=== PATIENT | male | born 1935 | race Caucasian/White ===

== ENCOUNTER → 2016-06-11 | Outpatient (CLI) | payer MEDICARE, BC ==
--- NOTE | 2016-06-11 11:30 | CT ---
EXAMINATION TYPE: CT chest wo con DATE OF EXAM: 06/11/2016 11:21 AM COMPARISON: 04/16/2016 HISTORY: follow up to lung CA CT DLP: 247.2 mGycm, Automated exposure control for dose reduction was used. CONTRAST: None TECHNIQUE: Axial images were obtained at 5 mm thick sections. Reconstructed images are reviewed on [employer] computer in the coronal plane. FINDINGS: Portion of the thyroid visualized is normal. Supraclavicular region appears normal. Axillar y regions are normal. There is a superior mediastinal mass measuring 6.9 x 5.5 cm at the level of the aortic arch extending into the aortopulmonic window. This has enlarged from the comparison study. There is a 1.3 cm pretra cheal lymph node which is enlarged. Some smaller shotty lymphadenopathy is at the aortopulmonic windo w and in the pretracheal space. A small subcarinal lymph node may be present. Note is made of coronar y artery calcification. There may be a 0.4 cm nodule in the left lower lobe periphery, stable from prior. Mild increased lung markings are in the dependent portions of the lung bases and within the periphery. The ascending aorta diameter at the level of the main pulmonary artery is 3.5 cm. The main pulmona ry artery diameter at the bifurcation is 2.[address] sections are obtained through the upper abdomen. Abdomen is essentially unremarkable. IMPRESSIONS: 1. Enlarging superior mediastinal mass. 2. Enlarged mediastinal lymph node in the pretracheal space larger than previous.
== END | disposition home or self-care (01) ==
LOC: RADCTMAIN 10:56
PROVIDERS: ATTEND Internal Medicine Hematology & Oncology
DX: C34.90 Malignant neoplasm of unspecified part of unspecified bronchus or lung (principal); J98.59 Other diseases of mediastinum, not elsewhere classified; R60.0 Localized edema
CPT/HCPCS: 71250

== ENCOUNTER 2016-08-05 14:26 | Inpatient (IN) | payer MEDICARE, BC ==
[2016-08-05] MEDS ORDERED: IV VANCOMYCIN PER PHARMACY 1 EACH MISC MISCELLANE PRN (17:27)
[2016-08-05] MEDS ORDERED: IPRATROPIUM-ALBUTEROL 3 ML NEB INHALATION PRN (17:53)
[2016-08-05] MEDS ORDERED: AMPICILLIN-SULBACTAM 3 GM in SODIUM CHLORIDE 0.9% 100 ML IVPB SCH (18:00)
[2016-08-05] MEDS: methylPREDNISolone SOD SUCCI 125 MG/2 ML VIAL IV SCH (18:32)
[2016-08-05 18:39] LABS: Calcium 8.3 mg/dL (8.4-10.2); Magnesium 1.7 mg/dL (1.6-2.3); Potassium 4.3 mmol/L (3.5-5.1); Total Bilirubin 0.8 mg/dL (0.2-1.3); Total Protein 5.2 g/dL (6.3-8.2)
--- NOTE | 2016-08-05 18:47 | XR ---
EXAMINATION TYPE: XR chest 2V DATE OF EXAM: 08/05/2016 6:34 PM COMPARISON: Prior chest x-ray March 07, [address] chest June 11, 2016. HISTORY: Shortness of breath. TECHNIQUE: Frontal and lateral views of the chest are obtained. FINDINGS: There is is chronic emphysematous change with left suprahilar mass or neoplasm redemonstra ayse. There is small left pleural effusion felt now present. The cardiac silhouette size is mildly en larged. The osseous structures are demineralized. Deformity right posterior lateral fifth rib is re demonstrated. IMPRESSION: Chronic emphysematous change with suprahilar mass or neoplasm and new small right pleura l effusion.
[2016-08-05] MEDS ORDERED: ONDANSETRON 4 MG/2 ML VIAL IVP PRN (18:52)
[2016-08-05 18:55] LABS: Anisocytosis Slight; Aty Lym Flag Slight; CH 31.1; CHCM 32.4; HCT 34.3 % (39.0-53.0); HDW 2.45; MCHC 32.1 g/dL (31.0-37.0); MCV 96.4 fL (80.0-100.0); Macrocytosis Slight; Mean Platelet Volume 8.2; RBC 3.56 m/uL (4.30-5.90); RDW 16.5 % (11.5-15.5); WBC 4.5 k/uL (3.8-10.6); WBC (Perox) 4.61
[2016-08-05] MEDS: BUDESONIDE 0.5 MG/2 ML NEBU INHALATION SCH (19:00)
[2016-08-05] MEDS ORDERED: VANCOMYCIN 1,500 MG in SODIUM CHLORIDE 0.9% 250 ML IVPB ONE (19:00)
[2016-08-05] MEDS ORDERED: RX INFO: IV CONTRAST WAS GIVEN 1 EACH MISC MISCELLANE PRN (19:01)
[2016-08-05] MEDS: IPRATROPIUM-ALBUTEROL 3 ML NEB INHALATION SCH (19:02)
[2016-08-05] MEDS: SODIUM CHLORIDE 0.9% 1,000 ML IV SCH (19:06)
[2016-08-05 19:32] LABS: Add Differential Manual Differential
[2016-08-05 19:42] LABS: Nucleated Red Blood Cells 0 /100 WBC (0-0); Total Cells Counted 100
[2016-08-05 19:44] LABS: Manual Review Performed
[2016-08-05 20:24] LABS: Glucose,Whole Blood 287 mg/dL (75-99)
[2016-08-05] MEDS: INSULIN LISPRO (humaLOG) 300 UNIT/3 ML VIAL SQ SCH (21:09)
[2016-08-05] MEDS: SODIUM BICARBONATE TAB 650 MG TAB PO SCH (22:33)
[2016-08-05 22:58] LABS: Hemoglobin A1C 6.9 % (4.2-6.1)
[2016-08-06 00:13] LABS: Glucose,Whole Blood 100 mg/dL (75-99)
[2016-08-06] MEDS: methylPREDNISolone SOD SUCCI 125 MG/2 ML VIAL IV SCH ×3 (02:36→17:15)
--- NOTE | 2016-08-06 07:06 | NM ---
EXAMINATION TYPE: NM pul vent and perfuse DATE OF EXAM: 08/05/2016 11:26 PM COMPARISON: Chest x-ray from earlier today HISTORY: Shortness of breath rule out pulmonary embolism TECHNIQUE: Utilizing inhalation of 71.5 mCi Tc 99m DTPA aerosol and intravenous injection of 5.5 mCi of Tc 99m MAA, ventilation and perfusion images are acquired post injection in multiple projections. FINDINGS: Some matching defects in bilateral upper lungs is present. Some central clumping of particles on vent ilation images is product of underlying COPD. No mismatched defects are clearly identified. IMPRESSION: Low probability for pulmonary embolism
[2016-08-06 07:12] LABS: Glucose,Whole Blood 116 mg/dL (75-99)
[2016-08-06 08:00] LABS: Calcium 8.7 mg/dL (8.4-10.2); Potassium 4.6 mmol/L (3.5-5.1)
[2016-08-06] MEDS: BUDESONIDE 0.5 MG/2 ML NEBU INHALATION SCH ×2 (08:13→21:30)
[2016-08-06] MEDS: IPRATROPIUM-ALBUTEROL 3 ML NEB INHALATION SCH ×4 (08:13→21:30)
[2016-08-06] MEDS: INSULIN LISPRO (humaLOG) 300 UNIT/3 ML VIAL SQ SCH ×4 (08:16→21:09)
[2016-08-06] MEDS: AMPICILLIN-SULBACTAM 3 GM in SODIUM CHLORIDE 0.9% 100 ML IVPB SCH ×2 (08:20→21:07)
[2016-08-06] MEDS: METOPROLOL SUCCINATE (ER) 50 MG TAB.ER.24H PO SCH (08:21)
[2016-08-06] MEDS: SODIUM BICARBONATE TAB 650 MG TAB PO SCH ×2 (08:21→21:11)
[2016-08-06] MEDS: FUROSEMIDE 20 MG TAB PO SCH (08:21)
[2016-08-06] MEDS: SODIUM CHLORIDE 0.9% 1,000 ML IV SCH ×2 (08:23→21:11)
[2016-08-06] MEDS: DOCUSATE 100 MG CAP PO SCH (11:15)
[2016-08-06 11:36] LABS: Glucose,Whole Blood 259 mg/dL (75-99)
[2016-08-06 12:05] VITALS: BMI 28.1
--- NOTE | 2016-08-06 15:55 | P.PN ---
Subjective This is a 80-year-old male who was a direct admission from Dr. Camejo's office on August 05 were patient reportedly was being seen for shortness of breath.chest x-ray on admission show chronic emphysema changes with the suprahilar mass or neoplasticpatient did have a VQ scan done on the it showed low probability for pulmonary embolipatient does have a history of lung cancerlung cancer was diagnosed in 2013 no radiation. Did receive chemotherapy on 08/01/2016. Patient has chronic respiratory failure O2 dependent 3 L around- the-clock at home Objective - Vital Signs Vital signs: Vital Signs Temp 97.5 F L 08/06/16 15:00 Pulse 82 08/06/16 15:00 Resp 16 08/06/16 15:00 BP 173/92 08/06/16 15:00 Pulse Ox 100 08/06/16 15:00 Intake & Output 08/05/16 08/06/16 08/06/16 18:59 06:59 18:59 Intake Total 450 Output Total 450 200 Balance -450 250 Weight 84 kg 84 kg 84 kg Intake: Intake, IV Titration 450 Amount Sodium Chloride 0.9% 1, 450 000 ml @ 75 mls/hr IV . [id number] RAJIV Rx#:[id number] Output: Urine 450 200 Other: # Voids 2 - Exam physical exam 80-year-old sitting up on the edge of the bed does not appear in acute distress states breathing feels slightly improved Lungs posterior diminished at the bases no audible wheezing on 3 L no cough noted Heart S1-S2 audible regular Abdomen soft nontender no reports of nausea vomiting Extremities no edema noted - Labs CBC & Chem 7: 08/05/16 18:18 08/06/16 07:19 Labs: Abnormal Lab Results - Last 24 Hours (Table) 08/05/16 08/05/16 08/05/16 Range/Units 18:18 18:18 18:18 RBC 3.56 L (4.30-5.90) m/uL Hgb 11.0 L (13.0-17.5) gm/dL Hct 34.3 L (39.0-53.0) % RDW 16.5 H (11.5-15.5) % Lymphocytes # (Manual) 0.9 L (1.0-4.8) k/uL D-Dimer (<0.60) mg/L FEU BUN 44 H (9-20) mg/dL Creatinine 2.30 H (0.66-1.25) mg/dL Glucose 267 H (74-99) mg/dL POC Glucose (mg/dL) (75-99) mg/dL Hemoglobin A1c 6.9 H (4.2-6.1) % Calcium 8.3 L (8.4-10.2) mg/dL Total Protein 5.2 L (6.3-8.2) g/dL Albumin 3.0 L (3.5-5.0) g/dL 08/05/16 08/05/16 08/06/16 Range/Units 18:18 20:22 00:09 RBC (4.30-5.90) m/uL Hgb (13.0-17.5) gm/dL Hct (39.0-53.0) % RDW (11.5-15.5) % Lymphocytes # (Manual) (1.0-4.8) k/uL D-Dimer 2.85 H (<0.60) mg/L FEU BUN (9-20) mg/dL Creatinine (0.66-1.25) mg/dL Glucose (74-99) mg/dL POC Glucose (mg/dL) 287 H 100 H (75-99) mg/dL Hemoglobin A1c (4.2-6.1) % Calcium (8.4-10.2) mg/dL Total Protein (6.3-8.2) g/dL Albumin (3.5-5.0) g/dL 08/06/16 08/06/16 08/06/16 Range/Units 07:00 07:19 11:25 RBC (4.30-5.90) m/uL Hgb (13.0-17.5) gm/dL Hct (39.0-53.0) % RDW (11.5-15.5) % Lymphocytes # (Manual) (1.0-4.8) k/uL D-Dimer (<0.60) mg/L FEU BUN 36 H (9-20) mg/dL Creatinine 2.31 H (0.66-1.25) mg/dL Glucose 122 H (74-99) mg/dL POC Glucose (mg/dL) 116 H 259 H (75-99) mg/dL Hemoglobin A1c (4.2-6.1) % Calcium (8.4-10.2) mg/dL Total Protein (6.3-8.2) g/dL Albumin (3.5-5.0) g/dL Assessment and Plan Plan: impression Present on admission shortness of breath suspect due to acute bronchitis Lung cancer diagnosed in 2013 no radiation treatment recent chemotherapy 2016 Chronic bronchitis VQ scan low probability of a pulmonary emboli Chest x-ray shows emphysema changes Chronic hypoxic respiratory failure supplement O2 3 L [id number] Chronic constipation Plan Continue current IV antibiotics as ordered Aerosol bronchodilators as ordered DVT and GI prophylaxis Home meds as appropriate Repeat labs in the morning Further recommendations pending The above dictated assessment and findings were discussed with dr camejo . Impression and the plan of care have been dictated as directed. Esther Brenner nurse practitioner acting as a scribe for dr camejo
[2016-08-06 17:17] LABS: Glucose,Whole Blood 399 mg/dL (75-99)
--- NOTE | 2016-08-06 18:37 | P.CONS ---
History of Present Illness - Reason for Consult Consult date: 08/06/16 Requesting physician: Fer Cordero - Chief Complaint SOB - History of Present Illness Mr. Hatch is a very pleasant male pt of Dr. Hsieh who presented with hoarseness of voice mid 2014 associated with progressive dyspnea and 35 pound weight loss. He was seen by ENT at 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 He started palliative carboplatin and etoposide in August 2014. Treatment monitoring CT scan on 11/08/2014 revealed significant improvement in his disease compared to prior CT he had at [facility]. He complete 4 cycles 11/2014, he required only 1 PRBC transfusion after the 3rd cycle. Treatment follow up CT on 02/03/15 continued to reveal significant improvement in his disease. CT f/u 05/11/15 revealed no evidence of progression.Pt did well but unfortunately CT f/u on 11/30/15 revealed significant increase in DONNA lung mass.He started weekly taxol on 12/20/15.Treatment evaluation CT 02/14/2016 revealed stable disease. He competed 4 cycles 02/21/16. He was hospitalized with pneumonia in February. The next 2 scans on 04/16/16 and 06/11/16 both revealed slight increase in DONNA lung mass. Dr. Hsieh discussed poor prognosis especially with pt co-morbidities but pt and his wanted to pursue active treatment, pt is currently s/p 2 cycles of single agent salvage carboplatin. Pt states that when he went outside the cold made it difficult for him to breathe, he could not catch his breath and that is what brought him to the hospital, he is breathing much more comfortably now, he states he vomited after eating dinner last night, he denied any nausea. No fevers, chills, oral irritation, chest pain, palpitations, he has a cough, small amt of sputum, denies hemoptysis, no abd pain, cramping, bloating, difficulty urinating, he takes colace at home for constipation. No other physical c/o. Review of Systems All systems: negative Constitutional: Reports as per HPI Past Medical History Past Medical History: Coronary Artery Disease (CAD), Cancer, COPD, Diabetes Mellitus, Hyperlipidemia, Hypertension, Osteoarthritis (OA), Pneumonia, Renal Disease Additional Past Medical History / Comment(s): Lung Cancer diagnosed in 2013.NO RADIATION BUT had A chemo on 08-01-16.chronic resp failure,bronchits, emphysema- is 02 dependnant 3 liters n/c atc. constipation(last bm, 08-04-16)," paralized lt vocal cord", sinus problems. History of Any Multi-Drug Resistant Organisms: None Reported Past Surgical History: Adenoidectomy, Hernia Repair, Orthopedic Surgery, Tonsillectomy Additional Past Surgical History / Comment(s): bilateral knee replacement, pin in right ankle, "rectal fissure sx long time ago", "bronchoscopy/bx", laina cataracts, micro laryngoscopy 2013. Past Anesthesia/Blood Transfusion Reactions: No Reported Reaction Additional Past Anesthesia/Blood Transfusion Reaction / Comm: clausterphobia. had 1 blood transfusion- no reaction. Past Psychological History: No Psychological Hx Reported Additional Psychological History / Comment(s): pt is independant, lives with his catracho in i level home has 1 step into house, basement has 13 steps. has 2 dogs, 4 cats. pt received visiting nurse x1 week(could'nt rememeber name of company), has home 02, nebulizer and a cane/walker if needed. 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 Smoking Status: Former smoker Past Alcohol Use History: None Reported Additional Past Alcohol Use History / Comment(s): started smoking 89, quit 1999, smoked 3 ppd. Past Drug Use History: None Reported - Past Family History Father Family Medical History: COPD Additional Family Medical History / Comment(s): emphysemas(smoker) Brother(s) Family Medical History: Cancer Additional Family Medical History / Comment(s): prostate cancer Sister(s) Family Medical History: COPD Mother Family Medical History: Dementia Additional Family Medical History / Comment(s): alzhiemers lived to be 102 Medications and Allergies Home Medications Medication Instructions Recorded Confirmed Type Sodium Bicarbonate Tab 650 mg PO BID 02/24/16 08/05/16 History Albuterol Inhaler [Ventolin Hfa 2 puff INHALATION RT-QID PRN 02/25/16 08/05/16 History Inhaler] Fluticasone/Salmeterol [Advair Hfa 1 puff INHALATION RT-BID 08/05/16 08/05/16 History 115-21 Mcg Inhaler] Furosemide [Lasix] 20 mg PO DAILY 08/05/16 08/05/16 History Insulin Aspart [NovoLOG] See Protocol SQ AC-TID 08/05/16 08/05/16 History Metoprolol Succinate (ER) [Toprol 50 mg PO DAILY 08/05/16 08/05/16 History Xl] Allergies Allergy/AdvReac Type Severity Reaction Status Date / Time No Known Allergies Allergy Verified 08/05/16 19:45 Physical Exam Vitals: Vital Signs Temp Pulse Pulse Resp BP Pulse Ox 08/06/16 16:00 16 08/06/16 15:00 97.5 F L 82 16 173/92 100 08/06/16 11:55 100 08/06/16 11:44 92 08/06/16 08:29 100 08/06/16 08:14 110 H 100 08/06/16 08:00 18 08/06/16 07:00 98.3 F 108 H 16 170/90 96 08/06/16 00:00 101 H 16 08/05/16 20:36 97.8 F 101 H 16 152/77 96 08/05/16 19:13 68 08/05/16 19:02 60 Intake and Output 08/06/16 08/06/16 08/06/16 06:59 14:59 22:59 Intake Total 450 Output Total 200 200 Balance -200 250 Intake: Intake, IV Titration 450 Amount Sodium Chloride 0.9% 1, 450 000 ml @ 75 mls/hr IV . [id number] RAJIV Rx#:[id number] Output: Urine 200 200 Other: # Voids 2 Weight 84 kg 84 kg Patient Weight 08/07/16 06:59 Weight 84 kg - Constitutional General appearance: average body habitus, cooperative, no acute distress - EENT Eyes: anicteric sclerae, EOMI ENT: normal oropharynx - Neck Neck: no lymphadenopathy - Respiratory Respiratory: left: rales (anterior), bilateral: diminished - Cardiovascular Heart sounds: normal: S1, S2 leg Peripheral Edema: bilateral: 1+, Pitting - Gastrointestinal General gastrointestinal: no absent bowel sounds, no decreased bowel sounds, no distended, no hepatomegaly, no hyperactive bowel sounds, normal bowel sounds, no organomegaly, no rigid, no scaphoid, soft, no splenomegaly, no tenderness, no umbilical hernia, no ventral hernia - Neurologic Neurologic: CNII-XII intact - Musculoskeletal Musculoskeletal: generalized weakness, strength equal bilaterally - Psychiatric Psychiatric: A&O x's 3, appropriate affect, intact judgment & insight Results CBC & Chem 7: 08/05/16 18:18 08/06/16 07:19 Labs: Abnormal Lab Results - Last 24 Hours (Table) 08/05/16 08/05/16 08/05/16 Range/Units 18:18 18:18 18:18 RBC 3.56 L (4.30-5.90) m/uL Hgb 11.0 L (13.0-17.5) gm/dL Hct 34.3 L (39.0-53.0) % RDW 16.5 H (11.5-15.5) % Lymphocytes # (Manual) 0.9 L (1.0-4.8) k/uL D-Dimer (<0.60) mg/L FEU BUN 44 H (9-20) mg/dL Creatinine 2.30 H (0.66-1.25) mg/dL Glucose 267 H (74-99) mg/dL POC Glucose (mg/dL) (75-99) mg/dL Hemoglobin A1c 6.9 H (4.2-6.1) % Calcium 8.3 L (8.4-10.2) mg/dL Total Protein 5.2 L (6.3-8.2) g/dL Albumin 3.0 L (3.5-5.0) g/dL 08/05/16 08/05/16 08/06/16 Range/Units 18:18 20:22 00:09 RBC (4.30-5.90) m/uL Hgb (13.0-17.5) gm/dL Hct (39.0-53.0) % RDW (11.5-15.5) % Lymphocytes # (Manual) (1.0-4.8) k/uL D-Dimer 2.85 H (<0.60) mg/L FEU BUN (9-20) mg/dL Creatinine (0.66-1.25) mg/dL Glucose (74-99) mg/dL POC Glucose (mg/dL) 287 H 100 H (75-99) mg/dL Hemoglobin A1c (4.2-6.1) % Calcium (8.4-10.2) mg/dL Total Protein (6.3-8.2) g/dL Albumin (3.5-5.0) g/dL 08/06/16 08/06/16 08/06/16 Range/Units 07:00 07:19 11:25 RBC (4.30-5.90) m/uL Hgb (13.0-17.5) gm/dL Hct (39.0-53.0) % RDW (11.5-15.5) % Lymphocytes # (Manual) (1.0-4.8) k/uL D-Dimer (<0.60) mg/L FEU BUN 36 H (9-20) mg/dL Creatinine 2.31 H (0.66-1.25) mg/dL Glucose 122 H (74-99) mg/dL POC Glucose (mg/dL) 116 H 259 H (75-99) mg/dL Hemoglobin A1c (4.2-6.1) % Calcium (8.4-10.2) mg/dL Total Protein (6.3-8.2) g/dL Albumin (3.5-5.0) g/dL 08/06/16 Range/Units 17:11 RBC (4.30-5.90) m/uL Hgb (13.0-17.5) gm/dL Hct (39.0-53.0) % RDW (11.5-15.5) % Lymphocytes # (Manual) (1.0-4.8) k/uL D-Dimer (<0.60) mg/L FEU BUN (9-20) mg/dL Creatinine (0.66-1.25) mg/dL Glucose (74-99) mg/dL POC Glucose (mg/dL) 399 H (75-99) mg/dL Hemoglobin A1c (4.2-6.1) % Calcium (8.4-10.2) mg/dL Total Protein (6.3-8.2) g/dL Albumin (3.5-5.0) g/dL Comments: VQ report reviewed Chest x-ray: report reviewed Assessment and Plan (1) Small cell lung cancer Narrative/Plan: Pt is on salvage therapy, pt and his are aware of prognosis and chose active treatment. Pt current c/o are likely a combination of lung cancer as well as COPD exacerbation, he is doing better already with a few doses of abx and supportive respiratory treatments. Pt will complete treatment of COPD exacerbation then be evaluated by Dr. Hsieh prior to resuming chemotherapy. Status: Chronic Plan: Labs were reviewed, mild anemia-no intervention IM and Pulmonary following pt
[2016-08-06 20:47] LABS: Glucose,Whole Blood 227 mg/dL (75-99)
[2016-08-06] MEDS: FAMOTIDINE 20 MG TAB PO SCH (21:11)
[2016-08-06] MEDS ORDERED: METOPROLOL SUCCINATE (ER) 50 MG TAB.ER.24H PO STA (21:26)
[2016-08-07] MEDS: methylPREDNISolone SOD SUCCI 125 MG/2 ML VIAL IV SCH ×4 (00:37→23:08)
[2016-08-07 07:09] LABS: Glucose,Whole Blood 262 mg/dL (75-99)
[2016-08-07 07:51] LABS: Anisocytosis Slight; Basophils % (A) 0 %; CH 31.4; CHCM 32.8; Eosinophils % (A) 0 %; HDW 2.53; HGB 11.6 gm/dL (13.0-17.5); Luc # (Auto) 0.08; Luc % (Auto) 1; Lymphocytes # (A) 0.7 k/uL (1.0-4.8); Lymphocytes % (A) 10 %; MCHC 32.3 g/dL (31.0-37.0); MCV 96.1 fL (80.0-100.0); Macrocytosis Slight; Mean Platelet Volume 7.8; Monocytes # (A) 0.3 k/uL (0-1.0); Monocytes % (A) 4 %; Neutrophils # (A) 6.2 k/uL (1.3-7.7); Neutrophils % (A) 85 %; RBC 3.75 m/uL (4.30-5.90); RDW 16.4 % (11.5-15.5); WBC 7.3 k/uL (3.8-10.6); WBC (Perox) 7.94
[2016-08-07] MEDS: INSULIN LISPRO (humaLOG) 300 UNIT/3 ML VIAL SQ SCH ×4 (07:54→21:05)
[2016-08-07] MEDS: SODIUM BICARBONATE TAB 650 MG TAB PO SCH ×2 (07:56→21:05)
[2016-08-07] MEDS: FAMOTIDINE 20 MG TAB PO SCH (07:56)
[2016-08-07] MEDS: FUROSEMIDE 20 MG TAB PO SCH (07:56)
[2016-08-07] MEDS: DOCUSATE 100 MG CAP PO SCH (07:56)
[2016-08-07] MEDS: METOPROLOL SUCCINATE (ER) 50 MG TAB.ER.24H PO SCH (07:57)
[2016-08-07] MEDS: AMPICILLIN-SULBACTAM 3 GM in SODIUM CHLORIDE 0.9% 100 ML IVPB SCH ×2 (07:59→21:05)
[2016-08-07 08:06] LABS: Calcium 8.6 mg/dL (8.4-10.2); Potassium 5.4 mmol/L (3.5-5.1); Total Bilirubin 0.6 mg/dL (0.2-1.3); Total Protein 5.9 g/dL (6.3-8.2)
--- NOTE | 2016-08-07 08:29 | P.PN ---
Subjective Pleasant 80-year-old being seen on rounds this morning currently sitting up in a chair taking a diet. Voice remains hoarse. Patient has received treatment for left lung mass is currently on cycle 2 last chemo treatment July Patient continues to reported goes outside the cold makes it difficult for him to breathe he can't catch his breath. His voice remains hoarse. Patient has been worked up with the ENT clinic at [place] who was found to have vocal cord paralysis. CAT scan of the neck at that time was negative. scan of the chest on the July showed a large left Hilar and mediastinal mass with a right paratracheal adenopathy and splenic lesions PET scan done on 08/17/2014 showed suspicious uptake in the after mentioned areas. Patient did have a bronchitic with biopsies the path report was positive for small cell lung cancer extensively stage disease. As mentioned the patient' s been followed by Dr. menjivar oncology. Has been receiving palliative carboplatin and etoposide patient's been followed closely by hematology oncology service. this morning is asking about having a MediPort placed will discuss with oncology service Objective - Vital Signs Vital signs: Vital Signs Temp 97.4 F L 08/07/16 07:00 Pulse 84 08/07/16 07:00 Resp 16 08/07/16 07:00 BP 178/86 08/07/16 07:00 Pulse Ox 99 08/07/16 07:00 Intake & Output 08/06/16 08/07/16 08/07/16 18:59 06:59 18:59 Intake Total 450 1615 Output Total 200 200 Balance 250 1415 Weight 84 kg Intake: IV 1275 Sodium Chloride 0.9% 1, 1275 000 ml @ 75 mls/hr IV . [id number] RAJIV Rx#:[id number] Intake, IV Titration 450 100 Amount Ampicillin-Sulbactam 3 gm 100 In Sodium Chloride 0.9% 100 ml @ 100 mls/hr IVPB Q12HR RAJIV Rx#:[id number] Sodium Chloride 0.9% 1, 450 000 ml @ 75 mls/hr IV . [id number] RAJIV Rx#:[id number] Oral 240 Output: Urine 200 200 Other: # Voids 2 1 - Exam Physical exam 80-year-old gentleman sitting up in a taking a diet place remains hoarse pleasant cooperative oriented 3 is asking about having a MediPort placed for chemotherapy treatment Lungs diminished left lower lobe greater than the right poor air entry upper airways positive breath sounds Heart S1-S2 audible regular denying chest pain Abdomen soft nontender no reports of nausea vomiting Extremities no edema noted - Labs CBC & Chem 7: 08/07/16 07:27 08/06/16 07:19 Labs: Abnormal Lab Results - Last 24 Hours (Table) 08/06/16 08/06/16 08/06/16 Range/Units 11:25 17:11 20:27 RBC (4.30-5.90) m/uL Hgb (13.0-17.5) gm/dL Hct (39.0-53.0) % RDW (11.5-15.5) % Lymphocytes # (1.0-4.8) k/uL POC Glucose (mg/dL) 259 H 399 H 227 H (75-99) mg/dL 08/07/16 08/07/16 Range/Units 06:55 07:27 RBC 3.75 L (4.30-5.90) m/uL Hgb 11.6 L (13.0-17.5) gm/dL Hct 36.0 L (39.0-53.0) % RDW 16.4 H (11.5-15.5) % Lymphocytes # 0.7 L (1.0-4.8) k/uL POC Glucose (mg/dL) 262 H (75-99) mg/dL Assessment and Plan Plan: impression Present on admission shortness of breath suspect due to acute bronchitis with acute exacerbation of COPD Lung cancer diagnosed in 2013 no radiation treatment recent palliative chemotherapy 08/01/2016 Chronic bronchitis VQ scan low probability of a pulmonary emboli Chest x-ray shows emphysema changes Chronic hypoxic respiratory failure supplement O2 3 L [id number] Chronic constipation Chronic dyspnea suspect due to small cell lung cancer progressive Plan Continue current IV antibiotics as ordered Unasyn and vancomycin Aerosol bronchodilators as ordered DVT and GI prophylaxis Home meds as appropriate Repeat labs in the morning Further recommendations pending Reviewed the recommendations by hematology oncology. The recommending treating the COPD exacerbation then patient can be evaluated by Dr. Arriaga before resuming chemotherapy. Patient's complaints are likely a combination of lung cancer as well as the exacerbation of COPD The above dictated assessment and findings were discussed with dr camejo . Impression and the plan of care have been dictated as directed. Esther Brenner nurse practitioner acting as a scribe for dr camejo
[2016-08-07] MEDS: IPRATROPIUM-ALBUTEROL 3 ML NEB INHALATION SCH ×4 (09:01→20:32)
[2016-08-07] MEDS: BUDESONIDE 0.5 MG/2 ML NEBU INHALATION SCH ×2 (09:01→20:32)
[2016-08-07] MEDS: VANCOMYCIN 1,500 MG in SODIUM CHLORIDE 0.9% 250 ML IVPB SCH (10:08)
--- NOTE | 2016-08-07 10:43 | P.CNPUL ---
History of Present Illness Consult date: 08/06/16 Requesting physician: Fer Cordero Reason for consult: COPD Chief complaint: Shortness of breath History of present illness: This is a 80-year-old man who is being evaluated and examined today on the fifth floor. This patient was a direct admit from Dr. Sanchez's office on August 05. He was apparently having increasing shortness of breath. This patient has chronic respiratory failure and he is O2 dependent with 3 L at all times. His chest x-ray on admission showed some chronic emphysematous changes and with a suprahilar mass or neoplasm and a new small right pleural effusion. Patient did have a VQ scan done on the as well and showed low probability for a pulmonary emboli. Patient does have a history of lung cancer was diagnosed in 2013 has not received radiation. He has undergone chemotherapy and his last treatment was on 08/01/2016. The patient is also being seen by oncology. Upon examination the patient is lying in bed with no specific complaints at this time. He is on 3 L of oxygen states he does have an intermittent dry cough. Review of Systems 14 point review of systems completed and is negative other than what is noted in the HPI Past Medical History Past Medical History: Coronary Artery Disease (CAD), Cancer, COPD, Diabetes Mellitus, Hyperlipidemia, Hypertension, Osteoarthritis (OA), Pneumonia, Renal Disease Additional Past Medical History / Comment(s): Lung Cancer diagnosed in 2013.NO RADIATION BUT had A chemo on 08-01-16.chronic resp failure,bronchits, emphysema- is 02 dependnant 3 liters n/c atc. constipation(last bm, 08-04-16)," paralized lt vocal cord", sinus problems. History of Any Multi-Drug Resistant Organisms: None Reported Past Surgical History: Adenoidectomy, Hernia Repair, Orthopedic Surgery, Tonsillectomy Additional Past Surgical History / Comment(s): bilateral knee replacement, pin in right ankle, "rectal fissure sx long time ago", "bronchoscopy/bx", laina cataracts, micro laryngoscopy 2013. Past Anesthesia/Blood Transfusion Reactions: No Reported Reaction Additional Past Anesthesia/Blood Transfusion Reaction / Comment(s): clausterphobia. had 1 blood transfusion- no reaction. Past Psychological History: No Psychological Hx Reported Additional Psychological History / Comment(s): pt is independant, lives with his catracho in [place] level home has 1 step into house, basement has 13 steps. has 2 dogs, 4 cats. pt received visiting nurse x1 week(could'nt rememeber name of company), has home 02, nebulizer and a cane/walker if needed. 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 Smoking Status: Former smoker Past Alcohol Use History: None Reported Additional Past Alcohol Use History / Comment(s): started smoking 1849, quit 1999, smoked 3 ppd. Past Drug Use History: None Reported - Past Family History Father Family Medical History: COPD Additional Family Medical History / Comment(s): emphysemas(smoker) Brother(s) Family Medical History: Cancer Additional Family Medical History / Comment(s): prostate cancer Sister(s) Family Medical History: COPD Mother Family Medical History: Dementia Additional Family Medical History / Comment(s): alzhiemers lived to be 102 Medications and Allergies Home Medications Medication Instructions Recorded Confirmed Type Sodium Bicarbonate Tab 650 mg PO BID 02/24/16 08/05/16 History Albuterol Inhaler [Ventolin Hfa 2 puff INHALATION RT-QID PRN 02/25/16 08/05/16 History Inhaler] Fluticasone/Salmeterol [Advair Hfa 1 puff INHALATION RT-BID 08/05/16 08/05/16 History 115-21 Mcg Inhaler] Furosemide [Lasix] 20 mg PO DAILY 08/05/16 08/05/16 History Insulin Aspart [NovoLOG] See Protocol SQ AC-TID 08/05/16 08/05/16 History Metoprolol Succinate (ER) [Toprol 50 mg PO DAILY 08/05/16 08/05/16 History Xl] Allergies Allergy/AdvReac Type Severity Reaction Status Date / Time No Known Allergies Allergy Verified 08/05/16 19:45 Physical Exam Vitals: Vital Signs Temp Pulse Pulse Resp BP BP Pulse Ox 08/06/16 11:55 100 08/06/16 11:44 92 08/06/16 08:29 100 08/06/16 08:14 110 H 100 08/06/16 08:00 18 08/06/16 07:00 98.3 F 108 H 16 170/90 96 08/06/16 00:00 101 H 16 08/05/16 20:36 97.8 F 101 H 16 152/77 96 08/05/16 19:13 68 08/05/16 19:02 60 08/05/16 16:08 97.7 F 109 H 17 199/84 92 L 08/05/16 16:00 80 20 Intake and Output 08/05/16 08/06/16 08/06/16 22:59 06:59 14:59 Output Total 250 200 200 Balance -250 -200 -200 Output: Urine 250 200 200 Other: # Voids 2 Weight 84 kg 84 kg 84 kg Patient Weight 08/07/16 06:59 Weight 84 kg GENERAL EXAM: Alert, active, comfortable in no apparent distress. HEAD: Normocephalic. EYES: Normal reaction of pupils, equal size. NOSE: Clear with pink turbinates. THROAT: No erythema or exudates. NECK: No masses, no JVD. CHEST: No chest wall deformity. LUNGS: Lung sounds noted to be coarse throughout, rhonchi noted bilaterally as well as diminished bases. CVS: S1 and S2 normal with no audible mumurs, regular rhythm. ABDOMEN: No hepatosplenomegaly, normal bowel sounds, no guarding or rigidity. EXTREMITIES: No edema noted, pedal pulses palpable. SKIN: No rashes CENTRAL NERVOUS SYSTEM: No focal deficits, tone is normal in all 4 extremities. Results - Laboratory Findings CBC and BMP: 08/07/16 07:27 08/06/16 07:19 PT/INR, D-dimer D-Dimer 2.85 mg/L FEU (<0.60) H 08/05/16 18:18 Abnormal lab findings: Abnormal Labs 08/05/16 08/05/16 08/05/16 18:18 18:18 18:18 RBC 3.56 L Hgb 11.0 L Hct 34.3 L RDW 16.5 H Lymphocytes # (Manual) 0.9 L D-Dimer BUN 44 H Creatinine 2.30 H Glucose 267 H POC Glucose (mg/dL) Hemoglobin A1c 6.9 H Calcium 8.3 L Total Protein 5.2 L Albumin 3.0 L 08/05/16 08/05/16 08/06/16 18:18 20:22 00:09 RBC Hgb Hct RDW Lymphocytes # (Manual) D-Dimer 2.85 H BUN Creatinine Glucose POC Glucose (mg/dL) 287 H 100 H Hemoglobin A1c Calcium Total Protein Albumin 08/06/16 08/06/16 08/06/16 07:00 07:19 11:25 RBC Hgb Hct RDW Lymphocytes # (Manual) D-Dimer BUN 36 H Creatinine 2.31 H Glucose 122 H POC Glucose (mg/dL) 116 H 259 H Hemoglobin A1c Calcium Total Protein Albumin - Diagnostic Findings Chest x-ray: report reviewed, image reviewed Assessment and Plan Plan: Assessment Acute exacerbation of COPD Acute on chronic bronchitis Lung cancer diagnosed in 2013 Chronic hypoxic respiratory failure Chronic constipation 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 Continue with supplemental oxygen as well as updrafts. Appreciate recommendations from oncology. We will continue to monitor labs and adjust treatment as necessary.
--- NOTE | 2016-08-07 10:50 | P.PN ---
Subjective This is a 80-year-old male who is being evaluated and examined today on the fifth floor. The patient was a direct admit from Dr. Cordero's office on August 05. He was apparently having increasing shortness of breath. The patient has chronic respiratory failure and he is O2 dependent with 3 L at all times. His chest x-ray on admission showed some chronic emphysematous changes with a suprahilar mass or neoplasm and a new small right pleural effusion. Patient did have a VQ scan done on the as well and showed low probability for pulmonary emboli. Patient does have a history of lung cancer and was diagnosed in 2013 has not received radiation. He has undergone chemotherapy and his last treatment was on 08/01/2016. The patient is also being seen by oncology. Upon examination the patient is sitting up in bed with no specific complaints at this time he still continues to be on 3 L of oxygen. He states he feels his breathing is somewhat better today continues to have a intermittent dry cough. The patient is supposed to go for a port insertion tomorrow. Objective - Vital Signs Vital signs: Vital Signs Temp 97.4 F L 08/07/16 07:00 Pulse 96 08/07/16 09:17 Resp 16 08/07/16 07:00 BP 178/86 08/07/16 07:00 Pulse Ox 99 08/07/16 07:00 Intake & Output 08/06/16 08/07/16 08/07/16 18:59 06:59 18:59 Intake Total 450 1615 Output Total 200 200 Balance 250 1415 Weight 84 kg Intake: IV 1275 Sodium Chloride 0.9% 1, 1275 000 ml @ 75 mls/hr IV . [id number] RAJIV Rx#:[id number] Intake, IV Titration 450 100 Amount Ampicillin-Sulbactam 3 gm 100 In Sodium Chloride 0.9% 100 ml @ 100 mls/hr IVPB Q12HR RAJIV Rx#:[id number] Sodium Chloride 0.9% 1, 450 000 ml @ 75 mls/hr IV . [id number] RAJIV Rx#:[id number] Oral 240 Output: Urine 200 200 Other: # Voids 2 1 - Exam GENERAL EXAM: Alert, active, comfortable in no apparent distress. HEAD: Normocephalic. EYES: Normal reaction of pupils, equal size. NOSE: Clear with pink turbinates. THROAT: No erythema or exudates. NECK: No masses, no JVD. CHEST: No chest wall deformity. LUNGS: Lung sounds course. Patient noted to have some expiratory wheezes throughout. Bases diminished CVS: S1 and S2 normal with no audible mumurs, regular rhythm. ABDOMEN: No hepatosplenomegaly, normal bowel sounds, no guarding or rigidity. EXTREMITIES: No edema noted, pedal pulses palpable. SKIN: No rashes CENTRAL NERVOUS SYSTEM: No focal deficits, tone is normal in all 4 extremities. - Labs CBC & Chem 7: 08/07/16 07:27 08/06/16 07:19 Labs: Abnormal Lab Results - Last 24 Hours (Table) 08/06/16 08/06/16 08/06/16 Range/Units 11:25 17:11 20:27 RBC (4.30-5.90) m/uL Hgb (13.0-17.5) gm/dL Hct (39.0-53.0) % RDW (11.5-15.5) % Lymphocytes # (1.0-4.8) k/uL POC Glucose (mg/dL) 259 H 399 H 227 H (75-99) mg/dL 08/07/16 08/07/16 Range/Units 06:55 07:27 RBC 3.75 L (4.30-5.90) m/uL Hgb 11.6 L (13.0-17.5) gm/dL Hct 36.0 L (39.0-53.0) % RDW 16.4 H (11.5-15.5) % Lymphocytes # 0.7 L (1.0-4.8) k/uL POC Glucose (mg/dL) 262 H (75-99) mg/dL Assessment and Plan Plan: Assessment Acute exacerbation of COPD Acute on chronic bronchitis Lung cancer diagnosed in 2013 Chronic hypoxic respiratory failure Chronic constipation 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 We will continue with the current medications as they have been reviewed. Continue with supplemental oxygen as well as updrafts. Appreciate recommendations from oncology. We will continue to monitor labs and adjust treatment as necessary.
[2016-08-07 11:38] LABS: Glucose,Whole Blood 199 mg/dL (75-99)
--- NOTE | 2016-08-07 12:03 | P.GSCN ---
History of Present Illness Consult date: 08/07/16 Reason for Consult: Port placement Requesting physician: Giselle Meza History of present illness: Patient is a 80-year-old white male, patient of Dr. Cordero and Dr. Campa in the outpatient setting, with medical history significant for small cell lung cancer diagnosed in 2013 status post palliative chemotherapy with last treatment on 01/2017. Patient admitted with increased shortness of breath possibly secondary to acute bronchitis with an acute COPD. Surgical consult requested for Port-A-Cath placement. Upon examination, patient is sitting up in the chair. Patient reports nonproductive cough. Denies chills, fevers, nausea, vomiting, chest pain, or abdominal pain. Patient reports problems with constipation. Patient reports bilateral leg swelling improved with elevation Denies urinary problems. Afebrile. No evidence of leukocytosis. Hemoglobin 11.6. Past Medical History Past Medical History: Coronary Artery Disease (CAD), Cancer, COPD, Diabetes Mellitus, Hyperlipidemia, Hypertension, Osteoarthritis (OA), Pneumonia, Renal Disease Additional Past Medical History / Comment(s): Lung Cancer diagnosed in 2013.NO RADIATION BUT had A chemo on 08-01-16.chronic resp failure,bronchits, emphysema- is 02 dependnant 3 liters n/c atc. constipation(last bm, 08-04-16)," paralized lt vocal cord", sinus problems. History of Any Multi-Drug Resistant Organisms: None Reported Past Surgical History: Adenoidectomy, Hernia Repair, Orthopedic Surgery, Tonsillectomy Additional Past Surgical History / Comment(s): bilateral knee replacement, pin in right ankle, "rectal fissure sx long time ago", "bronchoscopy/bx", laina cataracts, micro laryngoscopy 2013. Past Anesthesia/Blood Transfusion Reactions: No Reported Reaction Additional Past Anesthesia/Blood Transfusion Reaction / Comm: clausterphobia. had 1 blood transfusion- no reaction. Past Psychological History: No Psychological Hx Reported Additional Psychological History / Comment(s): pt is independant, lives with his catracho in [place] home has 1 step into house, basement has 13 steps. has 2 dogs, 4 cats. pt received visiting nurse x1 week(could'nt rememeber name of company), has home 02, nebulizer and a cane/walker if needed. 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 Smoking Status: Former smoker Past Alcohol Use History: None Reported Additional Past Alcohol Use History / Comment(s): started smoking 1849, quit 1999, smoked 3 ppd. Past Drug Use History: None Reported - Past Family History Father Family Medical History: COPD Additional Family Medical History / Comment(s): emphysemas(smoker) Brother(s) Family Medical History: Cancer Additional Family Medical History / Comment(s): prostate cancer Sister(s) Family Medical History: COPD Mother Family Medical History: Dementia Additional Family Medical History / Comment(s): jjrs lived to be [facility] Medications and Allergies Home Medications Medication Instructions Recorded Confirmed Type Sodium Bicarbonate Tab 650 mg PO BID 02/24/16 08/05/16 History Albuterol Inhaler [Ventolin Hfa 2 puff INHALATION RT-QID PRN 02/25/16 08/05/16 History Inhaler] Fluticasone/Salmeterol [Advair Hfa 1 puff INHALATION RT-BID 08/05/16 08/05/16 History 115-21 Mcg Inhaler] Furosemide [Lasix] 20 mg PO DAILY 08/05/16 08/05/16 History Insulin Aspart [NovoLOG] See Protocol SQ AC-TID 08/05/16 08/05/16 History Metoprolol Succinate (ER) [Toprol 50 mg PO DAILY 08/05/16 08/05/16 History Xl] Allergies Allergy/AdvReac Type Severity Reaction Status Date / Time No Known Allergies Allergy Verified 08/05/16 19:45 Surgical - Exam Vital Signs Pulse Resp 80 20 08/05/16 16:00 08/05/16 16:00 GENERAL: Pt awake and alert, sitting up in a chair, and in no acute distress. LUNGS: Breath sounds diminished with faint expiratory wheezes throughout. HEART: Heart S1, S2, no S3 or S4. Regular rate and rhythm. No murmurs, rubs or gallops. ABDOMEN: Soft, nontender, nondistended, normoactive bowel sounds. No guarding, no rebound. No masses or organomegaly appreciated. EXTREMITIES: 2+ peripheral pulses. 1+ pitting edema. No calf tenderness. NEUROLOGICAL: Pt oriented x 3. Results - Labs 08/07/16 07:27 08/07/16 07:27 Abnormal Lab Results - Last 24 Hours (Table) 03/08/06/16 08/07/16 Range/Units 17:11 20:27 06:55 RBC (4.30-5.90) m/uL Hgb (13.0-17.5) gm/dL Hct (39.0-53.0) % RDW (11.5-15.5) % Lymphocytes # (1.0-4.8) k/uL Potassium (3.5-5.1) mmol/L BUN (9-20) mg/dL Creatinine (0.66-1.25) mg/dL Glucose (74-99) mg/dL POC Glucose (mg/dL) 399 H 227 H 262 H (75-99) mg/dL Total Protein (6.3-8.2) g/dL Albumin (3.5-5.0) g/dL 08/07/16 08/07/16 08/07/16 Range/Units 07:27 07:27 11:35 RBC 3.75 L (4.30-5.90) m/uL Hgb 11.6 L (13.0-17.5) gm/dL Hct 36.0 L (39.0-53.0) % RDW 16.4 H (11.5-15.5) % Lymphocytes # 0.7 L (1.0-4.8) k/uL Potassium 5.4 H (3.5-5.1) mmol/L BUN 44 H (9-20) mg/dL Creatinine 2.24 H (0.66-1.25) mg/dL Glucose 270 H (74-99) mg/dL POC Glucose (mg/dL) 199 H (75-99) mg/dL Total Protein 5.9 L (6.3-8.2) g/dL Albumin 3.4 L (3.5-5.0) g/dL Diabetes panel 08/07/16 Range/Units 07:27 Sodium 137 (137-145) mmol/L Potassium 5.4 H (3.5-5.1) mmol/L Chloride 101 (98-107) mmol/L Carbon Dioxide 26 (22-30) mmol/L BUN 44 H (9-20) mg/dL Creatinine 2.24 H (0.66-1.25) mg/dL Glucose 270 H (74-99) mg/dL Calcium 8.6 (8.4-10.2) mg/dL AST 29 (17-59) U/L ALT 33 (21-72) U/L Alkaline Phosphatase 98 (38-126) U/L Total Protein 5.9 L (6.3-8.2) g/dL Albumin 3.4 L (3.5-5.0) g/dL Calcium panel 08/07/16 Range/Units 07:27 Calcium 8.6 (8.4-10.2) mg/dL Albumin 3.4 L (3.5-5.0) g/dL Pituitary panel 08/07/16 Range/Units 07:27 Sodium 137 (137-145) mmol/L Potassium 5.4 H (3.5-5.1) mmol/L Chloride 101 (98-107) mmol/L Carbon Dioxide 26 (22-30) mmol/L BUN 44 H (9-20) mg/dL Creatinine 2.24 H (0.66-1.25) mg/dL Glucose 270 H (74-99) mg/dL Calcium 8.6 (8.4-10.2) mg/dL Adrenal panel 08/07/16 Range/Units 07:27 Sodium 137 (137-145) mmol/L Potassium 5.4 H (3.5-5.1) mmol/L Chloride 101 (98-107) mmol/L Carbon Dioxide 26 (22-30) mmol/L BUN 44 H (9-20) mg/dL Creatinine 2.24 H (0.66-1.25) mg/dL Glucose 270 H (74-99) mg/dL Calcium 8.6 (8.4-10.2) mg/dL Total Bilirubin 0.6 (0.2-1.3) mg/dL AST 29 (17-59) U/L ALT 33 (21-72) U/L Alkaline Phosphatase 98 (38-126) U/L Total Protein 5.9 L (6.3-8.2) g/dL Albumin 3.4 L (3.5-5.0) g/dL Assessment and Plan Plan: Impression: 1. Small cell lung cancer Plan: 1. Patient will have Port-A-Cath placed tomorrow. Patient will remain nothing by mouth after midnight. Will check CBC, BMP, PT/INR in a.m. Continue to follow the medical team. The above impression and plan have been discussed and directed by Dr. Martin. Alhaji ROGER acting as scribe for Dr. Martin.
[2016-08-07 17:03] LABS: Glucose,Whole Blood 396 mg/dL (75-99)
[2016-08-07] MEDS: SODIUM CHLORIDE 0.9% 1,000 ML IV SCH (17:56)
[2016-08-07 21:02] LABS: Glucose,Whole Blood 355 mg/dL (75-99)
[2016-08-08 07:33] LABS: Glucose,Whole Blood 321 mg/dL (75-99)
[2016-08-08] MEDS: AMPICILLIN-SULBACTAM 3 GM in SODIUM CHLORIDE 0.9% 100 ML IVPB SCH ×2 (07:56→20:44)
[2016-08-08] MEDS: methylPREDNISolone SOD SUCCI 125 MG/2 ML VIAL IV SCH ×2 (07:56→16:19)
[2016-08-08] MEDS: INSULIN LISPRO (humaLOG) 300 UNIT/3 ML VIAL SQ SCH ×4 (07:57→20:44)
[2016-08-08] MEDS: SODIUM BICARBONATE TAB 650 MG TAB PO SCH ×2 (07:57→20:44)
[2016-08-08] MEDS: FUROSEMIDE 20 MG TAB PO SCH (07:58)
[2016-08-08] MEDS: FAMOTIDINE 20 MG TAB PO SCH (07:58)
[2016-08-08] MEDS: DOCUSATE 100 MG CAP PO SCH (07:58)
[2016-08-08] MEDS: METOPROLOL SUCCINATE (ER) 50 MG TAB.ER.24H PO SCH (07:59)
[2016-08-08] MEDS: IPRATROPIUM-ALBUTEROL 3 ML NEB INHALATION SCH ×4 (08:01→20:18)
[2016-08-08] MEDS: BUDESONIDE 0.5 MG/2 ML NEBU INHALATION SCH ×2 (08:01→20:18)
[2016-08-08 09:16] LABS: Anisocytosis Slight; Basophils % (A) 0 %; CHCM 32.7; Eosinophils % (A) 0 %; HCT 33.9 % (39.0-53.0); HDW 2.46; Luc # (Auto) 0.15; Luc % (Auto) 2; Lymphocytes # (A) 0.9 k/uL (1.0-4.8); Lymphocytes % (A) 10 %; MCH 30.9 pg (25.0-35.0); MCHC 32.4 g/dL (31.0-37.0); MCV 95.3 fL (80.0-100.0); Macrocytosis Slight; Mean Platelet Volume 7.5; Monocytes # (A) 0.5 k/uL (0-1.0); Monocytes % (A) 5 %; Neutrophils # (A) 7.6 k/uL (1.3-7.7); Neutrophils % (A) 83 %; RBC 3.55 m/uL (4.30-5.90); RDW 16.9 % (11.5-15.5); WBC 9.1 k/uL (3.8-10.6); WBC (Perox) 9.58
[2016-08-08 09:20] LABS: INR 1.1 (<1.1); Prothrombin Time 11.2 sec (9.0-12.0)
[2016-08-08 09:33] LABS: Calcium 8.7 mg/dL (8.4-10.2); Potassium 5.2 mmol/L (3.5-5.1)
--- NOTE | 2016-08-08 11:20 | P.PN ---
Progress Note - Text The patient is scheduled for Port-A-Cath insertion. The risks and benefits of the procedure have been discussed patient.
[2016-08-08] MEDS ORDERED: IV FLUID CONTINUATION 1,000 ML IV ONE (11:22)
[2016-08-08] MEDS ORDERED: HEPARIN SODIUM,PORCINE 5,000 UNIT/ML 1 ML VIAL SQ ONE (11:48)
[2016-08-08] MEDS ORDERED: ONDANSETRON 4 MG/2 ML VIAL IVP ONE (11:49)
[2016-08-08] MEDS ORDERED: INSULIN LISPRO (humaLOG) 300 UNIT/3 ML VIAL SQ ONE (11:56)
[2016-08-08] MEDS ORDERED: fentaNYL (PF) 50 MCG/ML 2 ML AMP ONE (12:00)
[2016-08-08] MEDS ORDERED: PROPOFOL 10 MG/ML 20 ML VIAL IV ONE (12:00)
[2016-08-08] MEDS ORDERED: MIDAZOLAM 2 MG/2 ML VIAL ONE (12:00)
[2016-08-08] MEDS ORDERED: KETAMINE 10 MG/ML 20 ML VIAL ONE (12:00)
[2016-08-08 12:02] LABS: Glucose,Whole Blood 283 mg/dL (75-99)
--- NOTE | 2016-08-08 12:10 | PN ---
Juan Hatch who is a 80-year-old male, seen, evaluated, and examined on Oncology unit. Clinically, patient is doing slightly better, breathing comfortably. Denies any chest pain, cough, congestion and shortness of breath has improved, though. Hemodynamic status is stable. This patient has been admitted to the hospital with increasing shortness of breath. He remains on oxygen. Chest x-ray showed extensive emphysema as well as a lung mass. Work-up including V/Q scan has been low probability for PE. Patient is a known cancer. Has been on therapy and received radiation in the past as well as chemotherapy with the last cycle was given earlier this month. Patient is being followed by Oncology unit as well. His last set of vitals include blood pressure is 176/80, respirations 20, pulse 74, temperature 98, saturation 100% on 2 L oxygen. HEENT: Unremarkable. NECK: Supple. LUNGS: Good air entry bilaterally. HEART: Regular rate and rhythm. Abdomen is soft. NEUROLOGICAL EXAMINATION: Otherwise, awake and alert. Patient is being evaluated by General Surgery for port placement as well. IMPRESSION: 1. Small cell lung cancer. Patient is undergoing chemotherapy. 2. Acute chronic obstructive pulmonary disease exacerbation. 3. Acute on chronic hypoxic respiratory failure. 4. Generalized weakness and medical debility and protein calorie malnourishment secondary to multifactorial process. PLAN AND RECOMMENDATION: As above. Continue supportive care. Increase activity as tolerated Radha with proceeding with port placement, aggressive chemotherapy for small cell cancer. Will follow.
[2016-08-08] MEDS ORDERED: BUPIVACAIN-EPI 0.25%-1:200,000 30 ML VIAL SQ ONE ×2 (12:19)
[2016-08-08] MEDS ORDERED: IOHEXOL 350 MG/ML 50ML BOTTLE INJ ONE ×2 (12:21)
--- NOTE | 2016-08-08 12:44 | P.OP ---
Date of Procedure: 08/08/16 Preoperative Diagnosis: Lung cancer Postoperative Diagnosis: Lung cancer Procedure(s) Performed: Left subclavian Port-A-Cath insertion Anesthesia: MAC Surgeon: Jose Martin Estimated Blood Loss (ml): 5 Pathology: none sent Condition: stable Disposition: PACU Description of Procedure: MPROCEDURE: The patient was placed on the operating table in the supine position. She received MAC anesthetic. The left chest was prepped and draped in the usual sterile fashion. The skin underneath the right clavicle was anesthetized with 1% Xylocaine and using Seldinger technique, the right subclavian vein was cannulized. The wire was placed through the needle and positioned under fluoroscopy. Next, the needle was removed and the port site was anesthetized with 1% Xylocaine. Skin was incised with #15 blade and port pocket was made using blunt and sharp dissection. Following this the catheter was attached to the sport and the port was flushed. The port was positioned into the pocket site and was secured with 3-0 Vicryl suture. The catheter was then brought out through the wire site and then the dilator sheath was placed over the wire and the dilator and the wire were removed. The catheter was placed through the sheath and the sheath was removed. The port was flushed with hep-lock solution. Skin was closed with interrupted 3-0 Vicryl sutures. Steri-Strips were applied. The patient tolerated the procedure well. The patient was sent to recovery room for chest x-ray after the procedure.
--- NOTE | 2016-08-08 12:56 | FL ---
EXAMINATION TYPE: FL guided central line placemt DATE OF EXAM: 08/08/2016 12:44 PM CLINICAL HISTORY: Port-A-Cath insertion TECHNIQUE: Fluoroscopy. COMPARISON: None. FINDINGS: Fluoroscopic guidance was provided during Port-A-Cath insertion procedure performed by Dr. Martin. A total of 37 seconds of fluoroscopic time was utilized during the procedure and one spot intraoperative fluoroscopic image is acquired. Single image acquired shows catheter tip at level of SVC. IMPRESSION: As Above.
[2016-08-08 13:04] LABS: Glucose,Whole Blood 279 mg/dL (75-99)
--- NOTE | 2016-08-08 13:32 | XR ---
EXAMINATION TYPE: XR chest 1V portable DATE OF EXAM: 08/08/2016 1:23 PM CLINICAL HISTORY: Port-A-Cath insertion TECHNIQUE: Single AP portable frontal view of the chest is obtained. COMPARISON: Chest x-ray from 3 days earlier. FINDINGS: There is new right subclavian Mediport catheter with tip in SVC. There is chronic emphysem atous change with left suprahilar mass/neoplasm. There is redemonstration of elevated left hemidiaphr agm. Dystrophic calcification or metallic foreign body right hilar region is stable. No sizable pneum othorax is seen bilaterally after catheter insertion. Suspect small left pleural effusion felt stable . Deformity right posterior lateral fifth rib is redemonstrated. IMPRESSION: New right subclavian Mediport catheter with tip in SVC. No evidence of sizable pneumothor ax after catheter insertion procedure.
--- NOTE | 2016-08-08 14:52 | P.PN ---
Subjective 80-year-old being seen in rounds this morning sitting up in a chair. Patient is aware the plan of care. Patient scheduled today for a Port-A-Cath insertion in a patient who is receiving chemotherapy for lung cancer the been no new events noted patient reports breathing feels slightly improved. Patients being followed by pulmonology service. Patient chest x-ray shows extensive emphysema as well as a lung mass. Workup such as a VQ scan showed low probability of a pulmonary emboli Objective - Vital Signs Vital signs: Vital Signs Temp 97.8 F 08/08/16 12:44 Pulse 75 08/08/16 13:15 Resp 16 08/08/16 13:15 BP 153/75 08/08/16 13:15 Pulse Ox 96 08/08/16 13:15 Intake & Output 08/07/16 08/08/16 08/08/16 18:59 06:59 18:59 Intake Total 825 1090 300 Output Total 10 Balance 825 1090 290 Intake: IV 600 750 300 Sodium Chloride 0.9% 1, 600 750 000 ml @ 75 mls/hr IV . [id number] RAJIV Rx#:[id number] Intake, IV Titration 225 100 Amount Ampicillin-Sulbactam 3 gm 100 100 In Sodium Chloride 0.9% 100 ml @ 100 mls/hr IVPB Q12HR RAJIV Rx#:[id number] Vancomycin 1,500 mg In 125 Sodium Chloride 0.9% 250 ml @ 125 mls/hr IVPB Q48H RAJIV Rx#:[id number] Oral 240 Output: Estimated Blood Loss 10 Other: # Voids 1 - Exam Physical exam 80-year-old gentleman sitting up remains hoarse pleasant cooperative oriented 3 is aware of the plan today is scheduled for Mediport by surgical service Lungs diminished left lower lobe greater than the right poor air entry upper airways positive breath sounds Heart S1-S2 audible regular denying chest pain Abdomen soft nontender no reports of nausea vomiting Extremities no edema noted - Labs CBC & Chem 7: 08/08/16 08:53 08/08/16 08:53 Labs: Abnormal Lab Results - Last 24 Hours (Table) 08/07/16 08/07/16 08/08/16 Range/Units 17:01 21:00 07:30 RBC (4.30-5.90) m/uL Hgb (13.0-17.5) gm/dL Hct (39.0-53.0) % RDW (11.5-15.5) % Lymphocytes # (1.0-4.8) k/uL Sodium (137-145) mmol/L Potassium (3.5-5.1) mmol/L BUN (9-20) mg/dL Creatinine (0.66-1.25) mg/dL Glucose (74-99) mg/dL POC Glucose (mg/dL) 396 H 355 H 321 H (75-99) mg/dL 08/08/16 08/08/16 08/08/16 Range/Units 08:53 08:53 11:42 RBC 3.55 L (4.30-5.90) m/uL Hgb 11.0 L (13.0-17.5) gm/dL Hct 33.9 L (39.0-53.0) % RDW 16.9 H (11.5-15.5) % Lymphocytes # 0.9 L (1.0-4.8) k/uL Sodium 136 L (137-145) mmol/L Potassium 5.2 H (3.5-5.1) mmol/L BUN 59 H (9-20) mg/dL Creatinine 2.34 H (0.66-1.25) mg/dL Glucose 327 H (74-99) mg/dL POC Glucose (mg/dL) 283 H (75-99) mg/dL 08/08/16 Range/Units 12:59 RBC (4.30-5.90) m/uL Hgb (13.0-17.5) gm/dL Hct (39.0-53.0) % RDW (11.5-15.5) % Lymphocytes # (1.0-4.8) k/uL Sodium (137-145) mmol/L Potassium (3.5-5.1) mmol/L BUN (9-20) mg/dL Creatinine (0.66-1.25) mg/dL Glucose (74-99) mg/dL POC Glucose (mg/dL) 279 H (75-99) mg/dL Assessment and Plan Plan: impression Present on admission shortness of breath suspect due to acute bronchitis with acute exacerbation of COPD Lung cancer diagnosed in 2013 no radiation treatment recent palliative chemotherapy 08/01/2016 Chronic bronchitis VQ scan low probability of a pulmonary emboli Chest x-ray shows emphysema changes Chronic hypoxic respiratory failure supplement O2 3 L [id number] Chronic constipation 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 recommend treating the COPD exacerbation then patient can be evaluated by Dr. Arriaga before resuming chemotherapy. Patient's complaints are likely a combination of lung cancer as well as the exacerbation of COPD The above dictated assessment and findings were discussed with dr camejo . Impression and the plan of care have been dictated as directed. Esther Brenner nurse practitioner acting as a scribe for dr camejo
[2016-08-08 16:52] LABS: Glucose,Whole Blood 379 mg/dL (75-99)
[2016-08-08] MEDS: SODIUM CHLORIDE 0.9% 1,000 ML IV SCH ×2 (17:50→20:43)
[2016-08-08 20:40] LABS: Glucose,Whole Blood 424 mg/dL (75-99)
[2016-08-09] MEDS: methylPREDNISolone SOD SUCCI 125 MG/2 ML VIAL IV SCH ×2 (00:05→07:47)
[2016-08-09] MEDS: SODIUM CHLORIDE 0.9% 1,000 ML IV SCH ×2 (00:05→17:28)
[2016-08-09] MEDS: DOCUSATE 100 MG CAP PO SCH (07:41)
[2016-08-09] MEDS: FUROSEMIDE 20 MG TAB PO SCH (07:42)
[2016-08-09] MEDS: FAMOTIDINE 20 MG TAB PO SCH (07:42)
[2016-08-09] MEDS: METOPROLOL SUCCINATE (ER) 50 MG TAB.ER.24H PO SCH (07:42)
[2016-08-09 07:43] LABS: Glucose,Whole Blood 305 mg/dL (75-99)
[2016-08-09] MEDS: INSULIN LISPRO (humaLOG) 300 UNIT/3 ML VIAL SQ SCH ×4 (07:45→20:41)
[2016-08-09] MEDS: SODIUM BICARBONATE TAB 650 MG TAB PO SCH ×2 (07:47→20:41)
[2016-08-09] MEDS: AMPICILLIN-SULBACTAM 3 GM in SODIUM CHLORIDE 0.9% 100 ML IVPB SCH ×2 (07:57→20:45)
[2016-08-09] MEDS: IPRATROPIUM-ALBUTEROL 3 ML NEB INHALATION SCH ×4 (08:05→19:13)
[2016-08-09] MEDS: BUDESONIDE 0.5 MG/2 ML NEBU INHALATION SCH ×2 (08:05→19:12)
[2016-08-09 08:13] LABS: Calcium 8.8 mg/dL (8.4-10.2)
[2016-08-09] MEDS: VANCOMYCIN 1,500 MG in SODIUM CHLORIDE 0.9% 250 ML IVPB SCH (09:33)
--- NOTE | 2016-08-09 10:09 | P.PN ---
Subjective This is a 80-year-old male who is being evaluated and examined today on the fifth floor. The patient was a direct admit from Dr. Cordero's office on August 05. He was apparently having increasing shortness of breath. The patient has chronic respiratory failure and he is O2 dependent with 3 L at all times. His chest x-ray on admission showed some chronic emphysematous changes with a suprahilar mass or neoplasm and a new small right pleural effusion. Patient did have a VQ scan done on the as well and showed low probability for pulmonary emboli. Patient does have a history of lung cancer and was diagnosed in 2013 has not received radiation. He has undergone chemotherapy and his last treatment was on 08/01/2016. The patient is also being seen by oncology. Upon examination the patient is sitting up in bed with no specific complaints at this time he still continues to be on 3 of oxygen. Patient uses oxygen at home as well. He states he feels his breathing is somewhat better today continues to have a intermittent dry cough. The patient underwent a port placement surgery yesterday. Objective - Vital Signs Vital signs: Vital Signs Temp 97.7 F 08/09/16 07:00 Pulse 109 H 08/09/16 08:51 Resp 20 08/09/16 07:00 BP 188/89 08/09/16 08:51 Pulse Ox 98 08/09/16 07:00 Intake & Output 08/08/16 08/09/16 08/09/16 18:59 06:59 18:59 Intake Total 1490 1890 Output Total 210 Balance 1280 1890 Intake: IV 900 Sodium Chloride 0.9% 1, 600 000 ml @ 75 mls/hr IV . [id number] RAJIV Rx#:[id number] Oral 590 1890 Output: Urine 200 Estimated Blood Loss 10 Other: # Voids 1 2 - Exam GENERAL EXAM: Alert, active, comfortable in no apparent distress. HEAD: Normocephalic. EYES: Normal reaction of pupils, equal size. NOSE: Clear with pink turbinates. THROAT: No erythema or exudates. NECK: No masses, no JVD. CHEST: No chest wall deformity. LUNGS: Lung sounds course. Patient noted to have some faint expiratory wheezes throughout. Bases diminished CVS: S1 and S2 normal with no audible mumurs, regular rhythm. ABDOMEN: No hepatosplenomegaly, normal bowel sounds, no guarding or rigidity. EXTREMITIES: No edema noted, pedal pulses palpable. SKIN: No rashes CENTRAL NERVOUS SYSTEM: No focal deficits, tone is normal in all 4 extremities. - Labs CBC & Chem 7: 08/08/16 08:53 08/09/16 07:13 Labs: Abnormal Lab Results - Last 24 Hours (Table) 08/08/16 08/08/16 08/08/16 Range/Units 11:42 12:59 16:49 Potassium (3.5-5.1) mmol/L BUN (9-20) mg/dL Creatinine (0.66-1.25) mg/dL Glucose (74-99) mg/dL POC Glucose (mg/dL) 283 H 279 H 379 H (75-99) mg/dL 08/08/16 08/09/16 08/09/16 Range/Units 20:38 07:13 07:30 Potassium 6.0 H (3.5-5.1) mmol/L BUN 60 H (9-20) mg/dL Creatinine 2.30 H (0.66-1.25) mg/dL Glucose 314 H (74-99) mg/dL POC Glucose (mg/dL) 424 H 305 H (75-99) mg/dL Assessment and Plan Plan: Assessment Acute exacerbation of COPD Acute on chronic bronchitis Lung cancer diagnosed in 2013 Chronic hypoxic respiratory failure Chronic constipation 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 Continue with supplemental oxygen as well as updrafts. Appreciate recommendations from oncology. We will continue to monitor labs and adjust treatment as necessary. This patient could be discharged home in the near future. I performed an examination of the patient and discussed their management with the nurse practitioner. I have reviewed the nurse practitioner's note and agree with the documented findings and plan of care.
[2016-08-09] MEDS ORDERED: SODIUM POLYSTYRENE SULFONATE 15 GM/60 ML BOTTLE PO STA (10:44)
--- NOTE | 2016-08-09 10:49 | P.PN ---
Subjective 80-year-old being seen on rounds. Patients being followed by multiple consulting physicians pulmonology, hematology oncology and surgical service. Patient is postop day 1 left subclavian Port-A-Cath insertion in a patient who is receiving chemotherapy for lung cancer. Did note the potassium was up to 6 this morning. Patient currently is resting comfortably in bed there's been no other new events the temp this morning is 97.7 the right subclavian site dressing is dry patient currently is resting in bed and states breathing feels slightly improved. Patient continues on IV Vanco and Unasyn await further recommendations in regards to the antibiotics Objective - Vital Signs Vital signs: Vital Signs Temp 97.7 F 08/09/16 07:00 Pulse 109 H 08/09/16 08:51 Resp 20 08/09/16 07:00 BP 188/89 08/09/16 08:51 Pulse Ox 98 08/09/16 07:00 Intake & Output 08/08/16 08/09/16 08/09/16 18:59 06:59 18:59 Intake Total 1490 1890 Output Total 210 Balance 1280 1890 Intake: IV 900 Sodium Chloride 0.9% 1, 600 000 ml @ 75 mls/hr IV . [id number] RAJIV Rx#:[id number] Oral 590 1890 Output: Urine 200 Estimated Blood Loss 10 Other: # Voids 1 2 - Exam Physical exam 80-year-old gentleman heart hearing resting in bed states breathing feels slightly improved Chest right subclavian purple ecchymotic bruise no hematoma Lungs diminished bilaterally poor air entry coarse rhonchi upper airways on O2 at 2-3 L dry nonproductive cough noted Heart S1-S2 audible regular Abdomen soft nontender Extremities no edema noted - Labs CBC & Chem 7: 08/08/16 08:53 08/09/16 07:13 Labs: Abnormal Lab Results - Last 24 Hours (Table) 08/08/16 08/08/16 08/08/16 Range/Units 11:42 12:59 16:49 Potassium (3.5-5.1) mmol/L BUN (9-20) mg/dL Creatinine (0.66-1.25) mg/dL Glucose (74-99) mg/dL POC Glucose (mg/dL) 283 H 279 H 379 H (75-99) mg/dL 0308/09/16 08/09/16 Range/Units 20:38 07:13 07:30 Potassium 6.0 H (3.5-5.1) mmol/L BUN 60 H (9-20) mg/dL Creatinine 2.30 H (0.66-1.25) mg/dL Glucose 314 H (74-99) mg/dL POC Glucose (mg/dL) 424 H 305 H (75-99) mg/dL Assessment and Plan Plan: impression Present on admission shortness of breath suspect due to acute bronchitis with acute exacerbation of COPD Lung cancer diagnosed in 2013 no radiation treatment recent palliative chemotherapy 08/01/2016 Chronic bronchitis VQ scan low probability of a pulmonary emboli Chest x-ray shows emphysema changes Chronic hypoxic respiratory failure supplement O2 3 L [id number] Chronic constipation 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 recommend treating the COPD exacerbation then patient can be evaluated by Dr. Arriaga before resuming chemotherapy. Patient's complaints are likely a combination of lung cancer as well as the exacerbation of COPD potassium to be corrected repeat labs today taper the steroids down further recommendations pending The above dictated assessment and findings were discussed with dr camejo . Impression and the plan of care have been dictated as directed. Esther Brenner nurse practitioner acting as a scribe for dr camejo
[2016-08-09 11:30] LABS: Glucose,Whole Blood 365 mg/dL (75-99)
[2016-08-09] MEDS: methylPREDNISolone SOD SUCCI 40 MG/ML 1 ML VIAL IV SCH ×2 (13:08→23:53)
[2016-08-09] MEDS ORDERED: INSULIN REGULAR 100 UNIT/ML VIAL IV ONE (13:41)
[2016-08-09] MEDS ORDERED: DEXTROSE 50%-WATER 50 ML SYRINGE IVP STA (13:51)
[2016-08-09] MEDS ORDERED: SODIUM BICARB 8.4% 50 ML SYR (1 MEQ/ML) IV STA (13:53)
[2016-08-09 17:16] LABS: Glucose,Whole Blood 169 mg/dL (75-99)
[2016-08-09 20:16] LABS: Glucose,Whole Blood 405 mg/dL (75-99)
[2016-08-09 20:16] LABS: Glucose,Whole Blood 374 mg/dL (75-99)
[2016-08-10] MEDS: SODIUM CHLORIDE 0.9% 1,000 ML IV SCH (06:09)
[2016-08-10 07:21] LABS: Glucose,Whole Blood 265 mg/dL (75-99)
[2016-08-10] MEDS: IPRATROPIUM-ALBUTEROL 3 ML NEB INHALATION SCH ×2 (08:00→11:15)
[2016-08-10] MEDS: BUDESONIDE 0.5 MG/2 ML NEBU INHALATION SCH (08:00)
[2016-08-10] MEDS: FUROSEMIDE 20 MG TAB PO SCH (08:01)
[2016-08-10] MEDS: SODIUM BICARBONATE TAB 650 MG TAB PO SCH (08:01)
[2016-08-10] MEDS: DOCUSATE 100 MG CAP PO SCH (08:01)
[2016-08-10] MEDS: INSULIN LISPRO (humaLOG) 300 UNIT/3 ML VIAL SQ SCH ×2 (08:01→12:18)
[2016-08-10] MEDS: FAMOTIDINE 20 MG TAB PO SCH (08:02)
[2016-08-10] MEDS: METOPROLOL SUCCINATE (ER) 50 MG TAB.ER.24H PO SCH (08:02)
[2016-08-10] MEDS: AMPICILLIN-SULBACTAM 3 GM in SODIUM CHLORIDE 0.9% 100 ML IVPB SCH (08:17)
[2016-08-10 08:45] VITALS: BP 133/78; RESP 20; TEMP 97.1
[2016-08-10 11:15] LABS: Glucose,Whole Blood 218 mg/dL (75-99)
[2016-08-10 11:28] VITALS: PULSE 94
[2016-08-10] MEDS: methylPREDNISolone SOD SUCCI 40 MG/ML 1 ML VIAL IV SCH (12:17)
--- NOTE | 2016-08-10 14:08 | DS ---
DATE OF ADMISSION: 08/09/2016 DATE OF DISCHARGE: DISCHARGE MEDICATIONS: 1. Albuterol and Atrovent, DuoNeb updrafts q.i.d. 2. Colace 100 mg daily. 3. Pepcid 20 daily. 4. Lasix 20 daily. 5. Insulin and Accu-Chek protocol. 6. Medrol Dosepak. 7. Augmentin 875 b.i.d. for a week. 8. Metoprolol succinate 50 mg daily. 9. Sodium bicarb 650 p.o. b.i.d. CONDITION: Stable. PROGNOSIS: Guarded. Ambulate as tolerated. Procedures done while in the hospital: He had a port placed on his right upper chest for which he will get chemotherapy as an outpatient. He has acute on chronic renal insufficiency. He has acute on chronic anemia. He had hyperkalemia and exacerbation of COPD and chronic bronchitis, lung cancer, chronic hypoxemic respiratory failure, chronic constipation. Continue on current medicines and will be sent home in stable condition to follow up as an outpatient. He was admitted and treated with IV antibiotics, IV steroids for his breathing and significant dyspnea. Port was changed while in the hospital. His diabetes controlled with Accu-Cheks protocol and his diabetes. Will follow up in the near future within a week in the office.
[2016-08-11] MEDS ORDERED: VANCOMYCIN TROUGH DUE 1 EACH MISC MISCELLANE ONE (08:00)
== END 2016-08-10 15:10 | disposition home or self-care (01) | DRG 191 ==
LOC: 5ONC 15:20 → INTOOBSV 15:20 → OBSVTOIN 08-09 14:19
PROVIDERS: ADMIT Family Medicine; ATTEND Family Medicine
PROC: 0JH63XZ Insertion of Tunneled Vascular Access Device into Chest Subcutaneous Tissue and Fascia, Percutaneous Approach (ICD-10-PCS; principal; 2016-08-08 12:30)
PROC: B5161ZA Fluoroscopy of Right Subclavian Vein using Low Osmolar Contrast, Guidance (ICD-10-PCS; principal; 2016-08-08 12:30)
PROC: 05H533Z Insertion of Infusion Device into Right Subclavian Vein, Percutaneous Approach (ICD-10-PCS; principal; 2016-08-08 12:30)
DX: J44.0 Chronic obstructive pulmonary disease with (acute) lower respiratory infection (principal); N17.9 Acute kidney failure, unspecified; E44.0 Moderate protein-calorie malnutrition; J96.11 Chronic respiratory failure with hypoxia; E11.22 Type 2 diabetes mellitus with diabetic chronic kidney disease; E87.5 Hyperkalemia; J38.00 Paralysis of vocal cords and larynx, unspecified; C34.90 Malignant neoplasm of unspecified part of unspecified bronchus or lung; Z99.81 Dependence on supplemental oxygen; J44.1 Chronic obstructive pulmonary disease with (acute) exacerbation; J20.9 Acute bronchitis, unspecified; E78.5 Hyperlipidemia, unspecified; I25.10 Atherosclerotic heart disease of native coronary artery without angina pectoris; N18.9 Chronic kidney disease, unspecified; Z96.653 Presence of artificial knee joint, bilateral; I12.9 Hypertensive chronic kidney disease with stage 1 through stage 4 chronic kidney disease, or unspecified chronic kidney disease; K59.09 Other constipation; Z80.42 Family history of malignant neoplasm of prostate; Z82.5 Family history of asthma and other chronic lower respiratory diseases; Z87.01 Personal history of pneumonia (recurrent); Z87.891 Personal history of nicotine dependence; Z79.899 Other long term (current) drug therapy; Z79.4 Long term (current) use of insulin
CPT/HCPCS: 71010; 71020; 77001; 78582; 80048; 80053; 83036; 83735; 83880; 84132; 85025; 85379; 85610; 94640; 94760

== ENCOUNTER 2016-10-29 12:30 | Inpatient (IN) | payer MEDICARE, BC ==
[2016-10-29] MEDS ORDERED: IPRATROPIUM-ALBUTEROL 3 ML NEB INHALATION STA (13:11)
[2016-10-29] MEDS ORDERED: methylPREDNISolone SOD SUCCI 125 MG/2 ML VIAL IV STA (13:11)
--- NOTE | 2016-10-29 13:14 | ED ---
General Adult HPI - General Chief complaint: Shortness of Breath Stated complaint: SOB Time Seen by Provider: 10/29/16 12:54 Source: patient, EMS, RN notes reviewed Mode of arrival: EMS Limitations: no limitations - History of Present Illness Initial comments: Patient is a pleasant 80-year-old male presenting to the emergency Department with shortness of breath. Patient is a poor historian and history is somewhat limited. Patient states symptoms are chronic however agrees there worse for the past few days. Patient does admit to having cough with occasional yellow sputum. No reported fever. No chest pain. Patient states he has had similar symptoms previously associated with COPD. - Related Data Home Medications Medication Instructions Recorded Confirmed Sodium Bicarbonate Tab 650 mg PO BID 02/24/16 10/29/16 Albuterol Inhaler [Ventolin Hfa 2 puff INHALATION RT-QID PRN 02/25/16 10/29/16 Inhaler] Fluticasone/Salmeterol [Advair Hfa 1 puff INHALATION RT-BID 08/05/16 10/29/16 115-21 Mcg Inhaler] Furosemide [Lasix] 20 mg PO DAILY 08/05/16 10/29/16 Insulin Aspart [NovoLOG] See Protocol SQ AC-TID 08/05/16 10/29/16 Metoprolol Succinate (ER) [Toprol 50 mg PO DAILY 08/05/16 10/29/16 Xl] Allergies Allergy/AdvReac Type Severity Reaction Status Date / Time No Known Allergies Allergy Verified 10/29/16 12:34 Review of Systems ROS Statement: Those systems with pertinent positive or pertinent negative responses have been documented in the HPI. ROS Other: All systems not noted in ROS Statement are negative. Constitutional: Denies: fever Eyes: Denies: eye pain ENT: Denies: ear pain Respiratory: Reports: cough, dyspnea Cardiovascular: Denies: chest pain Endocrine: Denies: fatigue Gastrointestinal: Denies: abdominal pain Genitourinary: Denies: dysuria Musculoskeletal: Denies: back pain Skin: Denies: rash Neurological: Denies: weakness Past Medical History Past Medical History: Coronary Artery Disease (CAD), Cancer, COPD, Diabetes Mellitus, Hyperlipidemia, Hypertension, Osteoarthritis (OA), Pneumonia, Renal Disease Additional Past Medical History / Comment(s): Lung Cancer diagnosed in 2013.NO RADIATION BUT had A chemo on 08-01-16.chronic resp failure,bronchits, emphysema- is 02 dependnant 3 liters n/c atc. constipation(last bm, 08-04-16)," paralized lt vocal cord", sinus problems. History of Any Multi-Drug Resistant Organisms: None Reported Past Surgical History: Adenoidectomy, Hernia Repair, Orthopedic Surgery, Tonsillectomy Additional Past Surgical History / Comment(s): bilateral knee replacement, pin in right ankle, "rectal fissure sx long time ago", "bronchoscopy/bx", laina cataracts, micro laryngoscopy 2013. Past Anesthesia/Blood Transfusion Reactions: No Reported Reaction Additional Past Anesthesia/Blood Transfusion Reaction / Comment(s): clausterphobia. had 1 blood transfusion- no reaction. Past Psychological History: No Psychological Hx Reported Additional Psychological History / Comment(s): pt is independant, lives with his catracho in i level home has 1 step into house, basement has 13 steps. has 2 dogs, 4 cats. pt received visiting nurse x1 week(could'nt rememeber name of company), has home 02, nebulizer and a cane/walker if needed. pt served in [employer] and worked in an [employer]. Smoking Status: Former smoker Past Alcohol Use History: None Reported Additional Past Alcohol Use History / Comment(s): started smoking 1849, quit 1999, smoked 3 ppd. Past Drug Use History: None Reported - Past Family History Father Family Medical History: COPD Additional Family Medical History / Comment(s): emphysemas(smoker) Brother(s) Family Medical History: Cancer Additional Family Medical History / Comment(s): prostate cancer Sister(s) Family Medical History: COPD Mother Family Medical History: Dementia Additional Family Medical History / Comment(s): alzhiemers lived to be 102 General Exam Limitations: no limitations General appearance: alert, in no apparent distress Head exam: Present: atraumatic Eye exam: Present: normal appearance, PERRL ENT exam: Present: normal oropharynx Neck exam: Present: normal inspection Respiratory exam: Present: wheezes (Mild wheezing), decreased breath sounds Cardiovascular Exam: Present: tachycardia GI/Abdominal exam: Present: soft. Absent: tenderness Extremities exam: Present: normal inspection. Absent: pedal edema, calf tenderness Neurological exam: Present: alert Psychiatric exam: Present: normal affect, normal mood Skin exam: Present: normal color Course Vital Signs 06/06/17 06/06/17 06/06/17 12:31 12:34 12:47 Temperature 99 F Pulse Rate 136 H Respiratory 20 20 Rate Blood Pressure 142/76 O2 Sat by Pulse 91 L Oximetry 10/29/16 10/29/16 10/29/16 13:26 13:37 14:17 Temperature Pulse Rate 125 H 125 H 124 H Respiratory 20 Rate Blood Pressure 126/87 O2 Sat by Pulse 94 L Oximetry EKG Findings - EKG Comments: EKG Findings:: Sinus tachycardia 133. NV 124. QRS 78. QT 300. QTc 446. Normal axis. Normal QRS. Normal ST-T. Medical Decision Making - Medical Decision Making Patient does not meet sepsis criteria as no identifiable source of infection at this time. Patient reevaluated and is somewhat improved. Lung sounds are improved and heart rate has improved 111. Patient and family are updated on results and plan. Case was discussed in detail with Dr. Cordero, who will admit his patient with consult for Dr. Nelson and oncology. - Lab Data Result diagrams: 10/29/16 13:25 Lab Results 10/29/16 Range/Units 13:25 WBC 19.2 H (3.8-10.6) k/uL RBC 3.60 L (4.30-5.90) m/uL Hgb 12.0 L (13.0-17.5) gm/dL Hct 37.5 L (39.0-53.0) % MCV 104.1 H (80.0-100.0) fL MCH 33.2 (25.0-35.0) pg MCHC 31.9 (31.0-37.0) g/dL RDW 15.2 (11.5-15.5) % Plt Count 131 L (150-450) k/uL Neutrophils % 87 % Lymphocytes % 7 % Monocytes % 4 % Eosinophils % 0 % Basophils % 0 % Neutrophils # 16.7 H (1.3-7.7) k/uL Lymphocytes # 1.3 (1.0-4.8) k/uL Monocytes # 0.8 (0-1.0) k/uL Eosinophils # 0.1 (0-0.7) k/uL Basophils # 0.1 (0-0.2) k/uL Macrocytosis Moderate - Radiology Data Radiology results: image reviewed (Chest x-ray shows chronic changes without acute infiltrate. Consistent with previous diagnosis of lung cancer.) Disposition Clinical Impression: COPD exacerbation Disposition: ADMITTED IP TO THIS HOSP Referrals: Fer Cordero MD [Primary Care Provider] - 1-2 days Time of Disposition: 15:12
[2016-10-29 13:43] LABS: Basophils # (A) 0.1 k/uL (0-0.2); Basophils % (A) 0 %; CH 33.7; CHCM 32.5; Eosinophils # (A) 0.1 k/uL (0-0.7); Eosinophils % (A) 0 %; HCT 37.5 % (39.0-53.0); HDW 2.74; Luc # (Auto) 0.24; Luc % (Auto) 1; Lymphocytes # (A) 1.3 k/uL (1.0-4.8); Lymphocytes % (A) 7 %; MCH 33.2 pg (25.0-35.0); MCHC 31.9 g/dL (31.0-37.0); MCV 104.1 fL (80.0-100.0); Macrocytosis Moderate; Mean Platelet Volume 7.6; Monocytes # (A) 0.8 k/uL (0-1.0); Monocytes % (A) 4 %; Neutrophils # (A) 16.7 k/uL (1.3-7.7); Neutrophils % (A) 87 %; RDW 15.2 % (11.5-15.5); WBC 19.2 k/uL (3.8-10.6)
--- NOTE | 2016-10-29 14:15 | XR ---
EXAMINATION TYPE: XR chest 2V DATE OF EXAM: 10/29/2016 COMPARISON: Prior chest x-ray 08/08/2016, CT chest 08/29/2016, chest x-ray 10/09/2016 HISTORY: Fever and cough, lung cancer TECHNIQUE: Frontal and lateral views of the chest are obtained. FINDINGS: Abnormal density at the level of the aortic pulmonary window is again noted, there is blun ting of the left costophrenic angle, abnormal increased density at the left lung base. Postop changes are noted to the upper right chest. Metallic shrapnel is again noted in the right upper chest kitchen aide iorly. Port-A-Cath is present on the right, distal tip of the catheter overlying the superior vena ca va. No evident pneumothorax. IMPRESSION: Findings are similar to prior exam, findings compatible with patient's history of lung c arcinoma. Indeterminate hypodensities on prior CT scan may represent metastatic disease within the li sully
[2016-10-29] MEDS ORDERED: IPRATROPIUM-ALBUTEROL 3 ML NEB INHALATION PRN (15:08)
[2016-10-29] MEDS ORDERED: LEVOFLOXACIN 500 MG TAB PO ONE (15:15)
[2016-10-29 15:28] LABS: Calcium 8.7 mg/dL (8.4-10.2); Potassium 4.6 mmol/L (3.5-5.1); Total Bilirubin 1.1 mg/dL (0.2-1.3)
[2016-10-29] MEDS: IPRATROPIUM-ALBUTEROL 3 ML NEB INHALATION SCH ×2 (16:03→20:37)
[2016-10-29 16:40] LABS: Glucose,Whole Blood 374 mg/dL (75-99)
[2016-10-29 16:58] VITALS: BMI 25.7
[2016-10-29] MEDS: methylPREDNISolone SOD SUCCI 125 MG/2 ML VIAL IV SCH ×2 (17:17→23:18)
[2016-10-29] MEDS: INSULIN LISPRO (humaLOG) 300 UNIT/3 ML VIAL SQ SCH ×2 (17:23→21:20)
[2016-10-29 20:01] LABS: INR 1.1 (<1.1); Partial Thromboplastin Time 23.3 sec (22.0-30.0); Prothrombin Time 10.9 sec (9.0-12.0)
[2016-10-29] MEDS: SODIUM BICARBONATE TAB 650 MG TAB PO SCH (21:20)
[2016-10-29] MEDS: SODIUM CHLORIDE 0.9% 1,000 ML IV SCH (21:20)
[2016-10-29 21:22] LABS: Glucose,Whole Blood 485 mg/dL (75-99)
[2016-10-29 21:22] LABS: Glucose,Whole Blood 454 mg/dL (75-99)
[2016-10-30 03:41] LABS: Appearance,Urine Cloudy (Clear); Bilirubin,Urine Negative (Negative); Glucose,Urine (UA) 4+ (Negative); Ketones,Urine Negative (Negative); Leukocyte Esterase,Urine Negative (Negative); Mucus,Urine Rare /hpf; Nitrite,Urine Negative (Negative); Particle Count 8052; Protein,Urine 1+ (Negative); RBC,Urine 4 /hpf (0-5); Specific Gravity,Urine 1.012 (1.001-1.035); Squamous Epithelial Cell,Urine 1 /hpf (0-4); UA Billing (MACRO vs. MICRO) MICRO; Urobilinogen,Urine <2.0 mg/dL (<2.0); WBC,Urine 6 /hpf (0-5)
[2016-10-30] MEDS: methylPREDNISolone SOD SUCCI 125 MG/2 ML VIAL IV SCH (05:29)
[2016-10-30 07:23] LABS: Glucose,Whole Blood 484 mg/dL (75-99)
[2016-10-30] MEDS: IPRATROPIUM-ALBUTEROL 3 ML NEB INHALATION SCH ×4 (08:55→20:24)
[2016-10-30] MEDS: SODIUM BICARBONATE TAB 650 MG TAB PO SCH ×2 (09:08→21:00)
[2016-10-30] MEDS: INSULIN GLARGINE 100 UNIT/ML 10 ML VIAL SQ SCH (09:08)
[2016-10-30] MEDS: INSULIN LISPRO (humaLOG) 300 UNIT/3 ML VIAL SQ SCH ×4 (09:08→21:00)
[2016-10-30] MEDS: METOPROLOL SUCCINATE (ER) 50 MG TAB.ER.24H PO SCH (09:09)
[2016-10-30] MEDS: FUROSEMIDE 20 MG TAB PO SCH (09:09)
[2016-10-30] MEDS: DRONABINOL 2.5 MG CAP PO SCH ×2 (09:18→17:55)
[2016-10-30 12:25] LABS: Glucose,Whole Blood 323 mg/dL (75-99)
[2016-10-30] MEDS: SODIUM CHLORIDE 0.9% 1,000 ML IV SCH ×2 (13:23→17:56)
--- NOTE | 2016-10-30 15:20 | P.PN ---
Subjective 80-year-old seen and evaluated currently is sitting up in a chair. Patient presented on the day of admission to the emergency room via the EMS system after patient stated he was very short of breath. Patient stated that he could only ambulate short distance had to stop because he felt short of breath. Patient stated the symptoms are similar to when he had COPD. Patient does have a history of COPD feels like he is having an acute exacerbation. Patient is a poor historian patient had chest x-ray which show chronic changes without an acute infiltrate consistent with the diagnosis of lung cancer patient's last hospitalization was August 09 at that time the patient was treated for an acute exacerbation of COPD. Patient has chronic hypoxic respiratory failure uses oxygen at home. Patient also has history of small cell lung cancer. Patient is being followed by Dr. Hsieh. Patient cannot recall when he saw Dr. Мария turner for his lung cancer. It's noted with any activity patient is extremely short of breath tachypneic. Objective - Vital Signs Vital signs: Vital Signs Temp 97.0 F L 10/30/16 07:00 Pulse 110 H 10/30/16 13:43 Resp 19 10/30/16 07:00 BP 140/88 10/30/16 07:00 Pulse Ox 98 10/30/16 07:00 Intake & Output 10/29/16 10/30/16 10/30/16 18:59 06:59 18:59 Intake Total 840 Balance 840 Weight 74.389 kg Intake: Intake, IV Titration 600 Amount Sodium Chloride 0.9% 1, 600 000 ml @ 75 mls/hr IV . [id number] Rx#:[id number] Oral 240 Other: # Voids 2 # Bowel Movements 1 - Exam Physical exam 80-year-old male up ambulating from the bed to the bathroom very short of breath with exertion oxygen on at 3 L patient denies dizziness lightheadedness states has not been coughing pleasant cooperative heart hearing speaks in a hoarse whispered voice Lungs diminished at the bases bilateral few expiratory wheezing noted Heart S1-S2 audible and regular Abdomen soft nontender no reports of frequent stooling no incontinence of urine Extremities no edema noted - Labs CBC & Chem 7: 10/29/16 13:25 10/29/16 15:00 Labs: Abnormal Lab Results - Last 24 Hours (Table) 10/29/16 10/29/16 10/29/16 Range/Units 15:00 16:37 19:30 Carbon Dioxide 20 L (22-30) mmol/L BUN 52 H (9-20) mg/dL Creatinine 2.67 H (0.66-1.25) mg/dL Glucose 290 H (74-99) mg/dL POC Glucose (mg/dL) 374 H (75-99) mg/dL Hemoglobin A1c (4.2-6.1) % Plasma Lactic Acid Epifanio 2.4 H* (0.7-2.0) mmol/L Total Protein 6.0 L (6.3-8.2) g/dL Albumin 3.3 L (3.5-5.0) g/dL Urine Protein (Negative) Urine Glucose (UA) (Negative) Urine Blood (Negative) Urine WBC (0-5) /hpf Urine Mucus (None) /hpf 10/29/16 10/29/16 10/29/16 Range/Units 19:30 21:16 21:19 Carbon Dioxide (22-30) mmol/L BUN (9-20) mg/dL Creatinine (0.66-1.25) mg/dL Glucose (74-99) mg/dL POC Glucose (mg/dL) 485 H 454 H (75-99) mg/dL Hemoglobin A1c 8.0 H (4.2-6.1) % Plasma Lactic Acid Epifanio (0.7-2.0) mmol/L Total Protein (6.3-8.2) g/dL Albumin (3.5-5.0) g/dL Urine Protein (Negative) Urine Glucose (UA) (Negative) Urine Blood (Negative) Urine WBC (0-5) /hpf Urine Mucus (None) /hpf 10/30/16 10/30/16 10/30/16 Range/Units 03:00 07:21 12:23 Carbon Dioxide (22-30) mmol/L BUN (9-20) mg/dL Creatinine (0.66-1.25) mg/dL Glucose (74-99) mg/dL POC Glucose (mg/dL) 484 H 323 H (75-99) mg/dL Hemoglobin A1c (4.2-6.1) % Plasma Lactic Acid Epifanio (0.7-2.0) mmol/L Total Protein (6.3-8.2) g/dL Albumin (3.5-5.0) g/dL Urine Protein 1+ H (Negative) Urine Glucose (UA) 4+ H (Negative) Urine Blood Moderate H (Negative) Urine WBC 6 H (0-5) /hpf Urine Mucus Rare H (None) /hpf Microbiology - Last 24 Hours (Table) 10/30/16 03:00 Urine Culture - Preliminary Urine,Voided 10/29/16 16:13 Gram Stain - Preliminary Sputum Assessment and Plan Plan: Impression Present on admission shortness of breath likely due to an acute exacerbation of COPD Type 2 diabetes insulin requiring hyperglycemia episodes likely due to steroids History of small cell lung cancer progression of tumor diagnosed in 2013 undergo on chemotherapy last treatment July 2016 CAT scan of the chest on August 29 shows a 7 by 5 irregular mass above the left pulmonary hilum consistent with a tumor 08/08/2016 left subclavian Port-A-Cath insertion for lung cancer for chemotherapy Chronic hypoxic respiratory failure 3 L [id number] supplemental home O2 Debilitated due to comorbidities Microscopic hematuria present on admission Plan Monitor blood sugars use the recall while on IV Solu-Medrol Consult pulmonary Resume home meds as appropriate DVT and GI prophylaxis Consult oncology service Repeat labs in the morning Send urine for UA and a urine culture follow up on results Further recommendations pending The above dictated assessment and findings were discussed with dr camejo . Impression and the plan of care have been dictated as directed. Esther Brenner nurse practitioner acting as a scribe for dr camejo ].
--- NOTE | 2016-10-30 15:24 | P.CNPUL ---
History of Present Illness Consult date: 10/30/16 Reason for consult: dyspnea, COPD, lung mass History of present illness: 80-year-old male patient with known history of advanced COPD, and history of small cell lung cancer that was diagnosed approximately a year ago. Back then the patient presented with hoarseness and further investigation showed that the patient had a left hilar mass that was ultimately diagnosed being a small cell lung cancer. His diagnosis was established at the [facility] in July 2014. The patient had extensive stage disease. The patient required systemic chemotherapy and he completed 6 sessions of carboplatinum and [facility]RE[id number]-16. Treatment monitoring by a CAT scan of the chest on 11/08/2014 revealed significant improvement in the disease compared to the prior CAT scan. The patient completed 4 cycles of systemic chemotherapy by November 2014. Treatment follow-up on another CAT scan on 02/03/2015 revealed significant improvement and a follow- up CAT scan on 05/11/2015 revealed no evidence of any progression. Subsequent CAT scan from November 2015 showed evidence of disease progression and increase in the size of the left upper lobe/hilar mass. The patient was given Taxol treatment on 12/20/2015. Treatment evaluation CAT scan on 02/14/2016 revealed stable disease. He completed a total of 4 cycles of Taxol on 02/21/2016. Around February 2016 the patient was hospitalized for pneumonia. CAT scan from 04/16/2016 and 06/11/2016 revealed slight increase in size of the left upper lobe mass. The patient accordingly was given 2 cycles of single agent salvage chemotherapy with carboplatinum Last CAT scan of the chest is from August 2016 and showed a large 7.5 x 5.5 cm irregular mass in the left hilum adjacent to the aortic arch and a small left-sided pleural effusion along with some few mediastinal lymph nodes measuring up to 1.5 cm in size in the paratracheal region. I'm seeing this patient in consultation today because of increased shortness of breath. He started having increased dyspnea, cough and congestion and his breathing got worse over the past week or so. No pleurisy. No chest pain. He is unable to bring up much sputum. He remains quite hoarse. He is oxygen dependent. He uses Advair as maintenance and a decision about she was treated for times a day [id number]. No nausea. No vomiting. No aspiration. No chest pain. No pleurisy. No hemoptysis. Review of Systems All systems: negative Constitutional: Denies chills, Denies fever Eyes: denies blurred vision, denies pain Ears, nose, mouth and throat: Reports hoarseness, Denies headache, Denies sore throat Cardiovascular: Reports decreased exercise tolerance, Reports shortness of breath, Denies chest pain Respiratory: Reports cough, Reports cough with sputum, Reports dyspnea, Reports home oxygen, Reports respiratory infections, Reports wheezing Gastrointestinal: Denies abdominal pain, Denies diarrhea, Denies nausea, Denies vomiting Musculoskeletal: Denies myalgias Integumentary: Denies pruritus, Denies rash Neurological: Denies numbness, Denies weakness Psychiatric: Denies anxiety, Denies depression Endocrine: Denies fatigue, Denies weight change Past Medical History Past Medical History: Coronary Artery Disease (CAD), Cancer, COPD, Diabetes Mellitus, Hyperlipidemia, Hypertension, Osteoarthritis (OA), Pneumonia, Renal Disease Additional Past Medical History / Comment(s): Coronary artery disease, chronic renal failure, COPD with chronic hypoxic respiratory failure, 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 Chronic hypoxic respiratory failure. History of Any Multi-Drug Resistant Organisms: None Reported Past Surgical History: Adenoidectomy, Hernia Repair, Orthopedic Surgery, Tonsillectomy Additional Past Surgical History / Comment(s): bilateral knee replacement, pin in right ankle, "rectal fissure sx long time ago", "bronchoscopy/bx", laina cataracts, micro laryngoscopy 2013. Past Anesthesia/Blood Transfusion Reactions: No Reported Reaction Additional Past Anesthesia/Blood Transfusion Reaction / Comment(s): clausterphobia. had 1 blood transfusion- no reaction. Past Psychological History: No Psychological Hx Reported Additional Psychological History / Comment(s): pt is independant, lives with his catracho in i level home has 1 step into house, basement has 13 steps. has 2 dogs, 4 cats. pt received visiting nurse x1 week(could'nt rememeber name of company), has home 02, nebulizer and a cane/walker if needed. 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 Smoking Status: Former smoker Past Alcohol Use History: None Reported Additional Past Alcohol Use History / Comment(s): started smoking 1849, quit 1999, smoked 3 ppd. Past Drug Use History: None Reported - Past Family History Father Family Medical History: COPD Additional Family Medical History / Comment(s): emphysemas(smoker) Brother(s) Family Medical History: Cancer Additional Family Medical History / Comment(s): prostate cancer Sister(s) Family Medical History: COPD Mother Family Medical History: Dementia Additional Family Medical History / Comment(s): alzhiemers lived to be 102 Medications and Allergies Home Medications Medication Instructions Recorded Confirmed Type Sodium Bicarbonate Tab 650 mg PO BID 02/24/16 10/29/16 History Albuterol Inhaler [Ventolin Hfa 2 puff INHALATION RT-QID PRN 02/25/16 10/29/16 History Inhaler] Fluticasone/Salmeterol [Advair Hfa 1 puff INHALATION RT-BID 08/05/16 10/29/16 History 115-21 Mcg Inhaler] Furosemide [Lasix] 20 mg PO DAILY 08/05/16 10/29/16 History Insulin Aspart [NovoLOG] See Protocol SQ AC-TID 08/05/16 10/29/16 History Metoprolol Succinate (ER) [Toprol 50 mg PO DAILY 08/05/16 10/29/16 History Xl] Allergies Allergy/AdvReac Type Severity Reaction Status Date / Time No Known Allergies Allergy Verified 10/29/16 12:34 Physical Exam Vitals: Vital Signs Temp Pulse Pulse Resp BP BP Pulse Ox 10/30/16 13:43 110 H 10/30/16 13:26 110 H 10/30/16 09:09 112 H 10/30/16 08:55 114 H 10/30/16 07:00 97.0 F L 99 19 140/88 98 10/29/16 23:20 18 10/29/16 23:00 97.5 F L 101 H 18 130/70 97 10/29/16 20:49 116 H 10/29/16 20:37 114 H 10/29/16 16:24 98.4 F 112 H 16 106/59 95 10/29/16 16:16 115 H 10/29/16 16:03 112 H 10/29/16 15:27 98.5 F 110 H 20 100/67 94 L Intake and Output 10/30/16 10/30/16 10/30/16 06:59 14:59 22:59 Intake Total 840 Balance 840 Intake: Intake, IV Titration 600 Amount Sodium Chloride 0.9% 1, 600 000 ml @ 75 mls/hr IV . [id number] Rx#:[id number] Oral 240 Other: # Voids 2 # Bowel Movements 1 Head exam was generally normal. There was no scleral icterus or corneal arcus. Mucous membranes were moist.Neck was supple and without jugular venous distension, thyromegaly, or carotid bruits. Carotids were easily palpable bilaterally. There was no adenopathy. Lung sounds are diminished bilaterally along with that there is scattered expiratory wheezes throughout the lung ramírez. There is also indication of expiratory phase of breathing.Cardiac exam revealed the PMI to be normally situated and sized. The rhythm was regular and no extrasystoles were noted during several minutes of auscultation. The first and second heart sounds were normal and physiologic splitting of the second heart sound was noted. There were no murmurs, rubs, clicks, or gallops.Abdominal exam revealed normal bowel sounds. The abdomen was soft, non- tender, and without masses, organomegaly, or appreciable enlargement of the abdominal aorta.Examination of the extremities revealed easily palpable radial, femoral and pedal pulses. There was no cyanosis, clubbing or edema. Results - Laboratory Findings CBC and BMP: 10/29/16 13:25 10/29/16 15:00 PT/INR, D-dimer PT 10.9 sec (9.0-12.0) 10/29/16 19:30 INR 1.1 (<1.1) 10/29/16 19:30 Abnormal lab findings: Abnormal Labs 10/29/16 10/29/16 10/29/16 13:25 15:00 16:37 WBC 19.2 H RBC 3.60 L Hgb 12.0 L Hct 37.5 L MCV 104.1 H Plt Count 131 L Neutrophils # 16.7 H Carbon Dioxide 20 L BUN 52 H Creatinine 2.67 H Glucose 290 H POC Glucose (mg/dL) 374 H Hemoglobin A1c Plasma Lactic Acid Epifanio Total Protein 6.0 L Albumin 3.3 L Urine Protein Urine Glucose (UA) Urine Blood Urine WBC Urine Mucus 10/29/16 10/29/16 10/29/16 19:30 19:30 21:16 WBC RBC Hgb Hct MCV Plt Count Neutrophils # Carbon Dioxide BUN Creatinine Glucose POC Glucose (mg/dL) 485 H Hemoglobin A1c 8.0 H Plasma Lactic Acid Epifanio 2.4 H* Total Protein Albumin Urine Protein Urine Glucose (UA) Urine Blood Urine WBC Urine Mucus 10/29/16 10/30/16 10/30/16 21:19 03:00 07:21 WBC RBC Hgb Hct MCV Plt Count Neutrophils # Carbon Dioxide BUN Creatinine Glucose POC Glucose (mg/dL) 454 H 484 H Hemoglobin A1c Plasma Lactic Acid Epifanio Total Protein Albumin Urine Protein 1+ H Urine Glucose (UA) 4+ H Urine Blood Moderate H Urine WBC 6 H Urine Mucus Rare H 10/30/16 12:23 WBC RBC Hgb Hct MCV Plt Count Neutrophils # Carbon Dioxide BUN Creatinine Glucose POC Glucose (mg/dL) 323 H Hemoglobin A1c Plasma Lactic Acid Epifanio Total Protein Albumin Urine Protein Urine Glucose (UA) Urine Blood Urine WBC Urine Mucus - Diagnostic Findings Chest x-ray: image reviewed Assessment and Plan Plan: Assessment 1 shortness of breath secondary acute COPD exacerbation. In fact the patient shortness of breath is multifactorial. 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 Decompensating factor is suspected to be an acute COPD exacerbation. The chest x-ray is showing findings consistent with lung cancer with a abnormal density in the left hilar area. No evidence of an acute pneumonia at this point 2 COPD advanced with chronic hypoxic respiratory failure 3 small cell lung cancer and diagnostic and therapeutic circumstances mentioned above, followed up by Dr. Arriaga 4 coronary artery disease 5 chronic renal failure 6 diabetes mellitus 7 chronic hoarseness with a paralyzed left vocal cord secondary to a intrathoracic mass/tumor 8 diminished performance status secondary to above-mentioned comorbidities Plan Optimize the patient's acute COPD exacerbation. We will offer this patient DuoNeb about treatments around the clock, Levaquin as an empiric antibiotic coverage and systemic steroids. We'll monitor blood sugar and cover the patient was studied scale insulin for blood sugar control. The patient is also on Lantus for blood sugar control. A CAT scan of the chest will be needed to follow-up on the lung mass. We'll do this without contrast based on the patient 's underlying chronic renal failure. We'll continue to follow. Consult oncology in addition.
[2016-10-30] MEDS: methylPREDNISolone SOD SUCCI 40 MG/ML 1 ML VIAL IV SCH ×2 (15:40→23:49)
[2016-10-30] MEDS ORDERED: LEVOFLOXACIN 500 MG TAB PO SCH (16:00)
[2016-10-30 17:24] LABS: Glucose,Whole Blood 351 mg/dL (75-99)
--- NOTE | 2016-10-30 18:22 | CT ---
EXAMINATION TYPE: CT chest wo con DATE OF EXAM: 10/30/2016 COMPARISON: 08/29/2016 HISTORY: Follow-up lung cancer. CT DLP: 533.00 mGycm Automated exposure control for dose reduction was used. FINDINGS: There is a large mass in the left upper lobe above the left pulmonary hilum that measures 8.2 x 6.6 c m. Mass is increased in size compared to the last exam of 08/29/2016. The dimensions on the old exam ar e 7.2 x 5.1 cm. There is some interstitial patchy infiltrate in the left upper lobe. There is patchy infiltrate and atelectasis at the left posterior lung base with small left pleural effusion. The righ t lung shows some mild interstitial density in the right middle lobe and anterior basal segment right lower lobe. There is a 3 cm right paratracheal lymph node. There are smaller peritracheal lymph node s that measure 2 cm. There is degenerative spurring in the thoracic spine. I see no focal bone destru ction. There are numerous variable sized hypodense masses in the liver that measure up to 4 to 5 cm. IMPRESSION: THERE IS A LARGE LEFT UPPER LOBE MASS CONSISTENT WITH PRIMARY MALIGNANCY THAT IS INCREASED COMPARED T O LAST EXAM. THERE IS INCREASE IN THE MEDIASTINAL ADENOPATHY. THERE IS INCREASED PATCHY CONSOLIDATION AND ATELECTASIS IN THE LEFT LOWER LOBE COMPARED TO LAST EXAM. STABLE LEFT PLEURAL EFFUSION. THERE ARE MULTIPLE VARIABLE-SIZED HYPODENSE MASSES IN THE LIVER CONSISTENT WITH EXTENSIVE METASTATIC DISEASE AND THESE APPEAR INCREASED IN SIZE COMPARED TO LAST CT SCAN.
--- NOTE | 2016-10-30 19:48 | P.CONS ---
History of Present Illness - Reason for Consult Consult date: 10/30/16 Hx lung cancer Requesting physician: Luis Rodarte - Chief Complaint SOB, HARRIS - History of Present Illness Mr. Hatch is a very pleasant male pt of Dr. Hsieh who presented with hoarseness that started in February 2015, it was associated with progressive dyspnea and about 35 pounds weight loss. Pt was seen by ENT at [facility], was found to have vocal cord paralysis. CT of neck was negative but, lung mass was noted. CT chest 08/15/14 revealed large left hilar and mediastinal mass 7.4 x 3.8cm, right paratracheal adenopathy and splenic lesions. Staging PET 08/17/14 revealed suspicious uptake all the aforementioned suspicious areas, consistent with metastatic disease. Bronchoscopy and transbronchial biopsy of left paratracheal nodes were positive for small cell lung carcinoma. 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 Treatment follow up CT 11/08/14 revealed significant improvement. Monitoring CT 02/03/15, 05/11/2015 both revealed no evidence of progression. CT of chest 11/30/15 revealed significant increase in DONNA lung mass and he started weekly taxol on 12/20/15. Treatment follow up CT on 02/14/16 revealed stable disease, he had 4 cycles of taxol, completed . Follow up CT of chest 04/16/16 revealed slight increase in DONNA lung mass , CT 06/11/16 revealed further disease progression so pt started carboplatin , he had total of 3 cycles, last dose 08/22/16. Treatment follow up CT 08/29/16 revealed further progression in his lung mass. Pt was last seen in the office by Dr. Hsieh on 09/23/16, he had a long discussion with the patient and his at that time, he reviewed poor prognosis, and he did not feel that pt is a candidate for further systemic therapy in view of very poor performance status. Comfort care/hospice were discussed,however, they did not want to proceed with it, they wanted to continue with home visiting nurses, pt and stated they may consider hospice down the road. Pt due to f/u with Dr. Hsieh December 02. Pt states coming to the hospital due to progressive worsening of his breathing , he denies having fever, chills, appetite is fair, no nausea or vomiting, chest pain, hemoptysis, some thick sputum occasionally, no indigestion, abd pain , changes in bowel or bladder habits, he denies significant weakness or wt. loss , he states he is feeling much better since being admitted. Review of Systems All systems: negative Constitutional: Reports as per HPI Past Medical History Past Medical History: Coronary Artery Disease (CAD), Cancer, COPD, Diabetes Mellitus, Hyperlipidemia, Hypertension, Osteoarthritis (OA), Pneumonia, Renal Disease Additional Past Medical History / Comment(s): Coronary artery disease, chronic renal failure, COPD with chronic hypoxic respiratory failure, 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 Chronic hypoxic respiratory failure. History of Any Multi-Drug Resistant Organisms: None Reported Past Surgical History: Adenoidectomy, Hernia Repair, Orthopedic Surgery, Tonsillectomy Additional Past Surgical History / Comment(s): bilateral knee replacement, pin in right ankle, "rectal fissure sx long time ago", "bronchoscopy/bx", laina cataracts, micro laryngoscopy 2013. Past Anesthesia/Blood Transfusion Reactions: No Reported Reaction Additional Past Anesthesia/Blood Transfusion Reaction / Comm: clausterphobia. had 1 blood transfusion- no reaction. Past Psychological History: No Psychological Hx Reported Additional Psychological History / Comment(s): pt is independant, lives with his catracho in i level home has 1 step into house, basement has 13 steps. has 2 dogs, 4 cats. pt received visiting nurse x1 week(could'nt rememeber name of company), has home 02, nebulizer and a cane/walker if needed. 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 Smoking Status: Former smoker Past Alcohol Use History: None Reported Additional Past Alcohol Use History / Comment(s): started smoking 89, quit 1999, smoked 3 ppd. Past Drug Use History: None Reported - Past Family History Father Family Medical History: COPD Additional Family Medical History / Comment(s): emphysemas(smoker) Brother(s) Family Medical History: Cancer Additional Family Medical History / Comment(s): prostate cancer Sister(s) Family Medical History: COPD Mother Family Medical History: Dementia Additional Family Medical History / Comment(s): alzhiemers lived to be 102 Medications and Allergies Home Medications Medication Instructions Recorded Confirmed Type Sodium Bicarbonate Tab 650 mg PO BID 02/24/16 10/29/16 History Albuterol Inhaler [Ventolin Hfa 2 puff INHALATION RT-QID PRN 02/25/16 10/29/16 History Inhaler] Fluticasone/Salmeterol [Advair Hfa 1 puff INHALATION RT-BID 08/05/16 10/29/16 History 115-21 Mcg Inhaler] Furosemide [Lasix] 20 mg PO DAILY 08/05/16 10/29/16 History Insulin Aspart [NovoLOG] See Protocol SQ AC-TID 08/05/16 10/29/16 History Metoprolol Succinate (ER) [Toprol 50 mg PO DAILY 08/05/16 10/29/16 History Xl] Allergies Allergy/AdvReac Type Severity Reaction Status Date / Time No Known Allergies Allergy Verified 10/29/16 12:34 Physical Exam Vitals: Vital Signs Temp Pulse Pulse Resp BP Pulse Ox 10/30/16 17:08 16 10/30/16 16:12 98 10/30/16 16:00 16 10/30/16 15:58 96 10/30/16 15:00 97.4 F L 94 16 135/78 99 10/30/16 13:43 110 H 10/30/16 13:26 110 H 10/30/16 09:09 112 H 10/30/16 08:55 114 H 10/30/16 07:00 97.0 F L 99 19 140/88 98 10/29/16 23:20 18 10/29/16 23:00 97.5 F L 101 H 18 130/70 97 10/29/16 20:49 116 H 10/29/16 20:37 114 H Intake and Output 10/30/16 10/30/16 10/30/16 06:59 14:59 22:59 Intake Total 840 600 Balance 840 600 Intake: Intake, IV Titration 600 600 Amount Sodium Chloride 0.9% 1, 600 600 000 ml @ 75 mls/hr IV . [id number] [facility] Rx#:[id number] Oral 240 Other: # Voids 2 2 1 # Bowel Movements 1 1 Weight 74.389 kg Patient Weight 10/31/16 06:59 Weight 74.389 kg - Constitutional General appearance: cooperative, mild distress, thin - EENT Eyes: anicteric sclerae, PERRLA ENT: normal oropharynx - Neck Neck: no lymphadenopathy - Respiratory Respiratory: bilateral: diminished, prolonged expiration - Cardiovascular Rhythm: regular Heart sounds: normal: S1, S2 leg Peripheral Edema: bilateral: None - Gastrointestinal General gastrointestinal: no absent bowel sounds, no decreased bowel sounds, no distended, no hepatomegaly, no hyperactive bowel sounds, normal bowel sounds, no organomegaly, no rigid, no scaphoid, soft, no splenomegaly, no tenderness, no umbilical hernia, no ventral hernia - Neurologic Neurologic: CNII-XII intact - Musculoskeletal Musculoskeletal: generalized weakness, strength equal bilaterally - Psychiatric Psychiatric: A&O x's 3, appropriate affect, intact judgment & insight Results CBC & Chem 7: 10/29/16 13:25 10/29/16 15:00 Labs: Abnormal Lab Results - Last 24 Hours (Table) 10/29/16 10/29/16 10/29/16 Range/Units 19:30 19:30 21:16 POC Glucose (mg/dL) 485 H (75-99) mg/dL Hemoglobin A1c 8.0 H (4.2-6.1) % Plasma Lactic Acid Epifanio 2.4 H* (0.7-2.0) mmol/L Urine Protein (Negative) Urine Glucose (UA) (Negative) Urine Blood (Negative) Urine WBC (0-5) /hpf Urine Mucus (None) /hpf 10/29/16 10/30/16 10/30/16 Range/Units 21:19 03:00 07:21 POC Glucose (mg/dL) 454 H 484 H (75-99) mg/dL Hemoglobin A1c (4.2-6.1) % Plasma Lactic Acid Epifanio (0.7-2.0) mmol/L Urine Protein 1+ H (Negative) Urine Glucose (UA) 4+ H (Negative) Urine Blood Moderate H (Negative) Urine WBC 6 H (0-5) /hpf Urine Mucus Rare H (None) /hpf 10/30/16 10/30/16 Range/Units 12:23 17:22 POC Glucose (mg/dL) 323 H 351 H (75-99) mg/dL Hemoglobin A1c (4.2-6.1) % Plasma Lactic Acid Epifanio (0.7-2.0) mmol/L Urine Protein (Negative) Urine Glucose (UA) (Negative) Urine Blood (Negative) Urine WBC (0-5) /hpf Urine Mucus (None) /hpf Microbiology - Last 24 Hours (Table) 10/29/16 15:00 Blood Culture - Preliminary Blood No Growth after 24 hours 10/30/16 03:00 Urine Culture - Preliminary Urine,Voided 10/29/16 16:13 Gram Stain - Preliminary Sputum CT scan - chest: report reviewed Assessment and Plan (1) Small cell lung cancer Narrative/Plan: Disease progression was noted on f/u scan in August and this was discussed with pt and at that time. Dr. Hsieh did not recommend chemotherapy due to pt poor performance status. He suggested hospice but pt and were not interested at office visit 09/23/16 and wanted to stay with visiting nurses. At this time agree with Pulmonary care as ordered, no intervention from Oncology. Pt has follow up sched with Dr. Hsieh in about 4-5 weeks. Office documentation states pt has advanced directives, will verify with pt and ask that a copy is made available to hospital. Status: Chronic
[2016-10-30 20:58] LABS: Glucose,Whole Blood 364 mg/dL (75-99)
[2016-10-31 07:26] LABS: Glucose,Whole Blood 261 mg/dL (75-99)
[2016-10-31] MEDS: DRONABINOL 2.5 MG CAP PO SCH ×2 (08:11→17:59)
[2016-10-31] MEDS: methylPREDNISolone SOD SUCCI 40 MG/ML 1 ML VIAL IV SCH ×2 (08:12→15:56)
[2016-10-31] MEDS: INSULIN LISPRO (humaLOG) 300 UNIT/3 ML VIAL SQ SCH ×4 (08:12→20:12)
[2016-10-31] MEDS: INSULIN GLARGINE 100 UNIT/ML 10 ML VIAL SQ SCH (08:12)
[2016-10-31] MEDS: FUROSEMIDE 20 MG TAB PO SCH (08:12)
[2016-10-31] MEDS: METOPROLOL SUCCINATE (ER) 50 MG TAB.ER.24H PO SCH (08:12)
[2016-10-31] MEDS: SODIUM BICARBONATE TAB 650 MG TAB PO SCH ×2 (08:12→20:11)
--- NOTE | 2016-10-31 09:16 | HP ---
DATE OF ADMISSION: 10/29/2016 CHIEF COMPLAINT: A 80-year-old white male with end-stage COPD and lung mass, possible lung cancer with increasing shortness of breath admitted due to worsening breathing and altered mental status. He was diagnosed with left lung small cell lung cancer, which is improved. Apparently getting bigger in size, underwent systemic chemotherapy 6 cis-wainwright and [facility]MER-16. He had a CT scan of the chest 11/08/14, which showed some improvement. Four cycles of Chemo then. January showed further improvement on the CAT scan and no further progression in April. November 2015 showed evidence of disease progression, increased size of the left upper lobe hilar mass. He was given Taxol treatment in November 2015. Stable disease was seen on CAT scan, 02/14/2016, four cycles of Taxol 02/21/2016. CAT scan on 06/11/2016 revealed slight increase in the size of the left upper lobe mass, he was given two single agents of chemotherapy with carboplatin and August CAT scan 2016 shows a large 7.5 x 5.5 irregular mass of the left hilum with some lymph nodes up to 1.5 cm. He was admitted due to shortness of breath, cough, congestion and respiratory distress. He normally takes 3 to 4 liters of oxygen at home all the time anyway. He has had negative hemoptysis. REVIEW OF SYSTEMS: Fourteen-point review of systems negative except for anorexia and a poor appetite. PULMONARY: As mentioned above. GI: As mentioned above. MUSCULOSKELETAL: Negative. INTEGUMENT: Negative. NEURO: Negative. PSYCH: Negative. ENDOCRINE: As mentioned above. PAST MEDICAL HISTORY: Coronary artery disease, lung cancer, COPD, diabetes mellitus, dyslipidemia, hypertension, osteoarthritis, pneumonia, renal disease, coronary artery disease, chronic renal failure, COPD, with hypoxemic respiratory failure, osteoarthritis, pneumonia. SURGERIES: Adenoidectomy, hernia repair, orthopedic surgery, tonsillectomy, bilateral knee replacement, multiple bronchoscopies. SOCIAL HISTORY: Lives with his . 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 Former smoker. No alcohol. 3 packs per day. FAMILY HISTORY: Father chronic obstructive pulmonary disease, brother cancer of the prostate, sister history of COPD, mother dementia. Home medicines: 1. Sodium bicarbonate. 2. Advair. 3. Lasix. 4. NovoLog. 5. Metoprolol tartrate. 6. Ventolin. ALLERGIES: Negative. PHYSICAL EXAM: 110s pulse rate, temperature 97. Blood pressure 100 to 140/59 to 88, respiratory rate 25 to 35, O2 sat 94% on 4 liters. Lungs show scattered rhonchi and wheezes. ABDOMEN: Distended due to obesity. CONSTITUTIONAL: Weak, fatigued, increased respiratory rate. Some mild guarding. Accessory muscle use. PSYCH: Appears anxious and nervous. NEUROLOGIC: Cranial nerves appear to be intact. MUSCULOSKELETAL: Weakness 3 to 4 out of 5 weakness x4 extremities. BUN is 52, creatinine is 2.6. White count 19.2, platelets 131, hemoglobin 12. Sugars are 3 to 400s. ASSESSMENT: 1. Acute chronic obstructive pulmonary disease exacerbation. 2. Chronic hypoxemic respiratory failure secondary to worsening small cell lung cancer with progression ( ) paralyzed vocal on the left compromising his breathing. 3. He has acute chronic obstructive pulmonary disease exacerbation. 4. Lung cancer. Chest x-ray abnormal density in the left hilar area. 5. Coronary artery disease. 6. Small cell lung cancer. 7. Chronic renal failure. 8. Diabetes mellitus, 9. Chronic hoarseness. 10. Diminished air flow. PLAN: Continue with DuoNeb, IV antibiotics, Lantus, Accu-Cheks protocol, possible CAT scan of the chest will be done. Await oncology consult and possibly renal consult.
[2016-10-31] MEDS: IPRATROPIUM-ALBUTEROL 3 ML NEB INHALATION SCH ×5 (09:35→19:51)
[2016-10-31] MEDS: SODIUM CHLORIDE 0.9% 1,000 ML IV SCH ×2 (11:48→18:54)
[2016-10-31 11:55] LABS: Glucose,Whole Blood 263 mg/dL (75-99)
--- NOTE | 2016-10-31 13:01 | P.PN ---
Subjective 80-year-old seen and evaluated currently resting in bed. Patient states breathing feels slightly improved this morning patient has been seen by hematology oncology as well as pulmonary service did review oncology's recommendations. Patient is been seen by Dr. Arriaga and a follow-up office visit in September Dr. Hsieh did suggest hospice but the patient and the were not interested in hospice care at that time. Also Dr. Hsieh did not recommend chemotherapy due to patient's poor performance status. At this time there is no further intervention from oncology. Patient can keep scheduled appointment with Dr. Arriaga in about 5 weeks. Additionally patient was seen this admission by pulmonary service who did recommend a CAT scan of the chest for follow-up on the lung cancer. CAT scan of the chest done on the seventh showed a large left upper lobe mass consistent with primary malignancy that has increased compared to prior exam. There are multiple variable sized hypodense masses in the liver consistent with extensive metastatic disease. These appear to have increased compared to a prior CAT scan done pulmonary indicates is no evidence of pneumonia. Patient's initial presentation to the emergency room with shortness of breath is felt to be secondary to an acute exacerbation of COPD. Patient has advanced COPD with chronic hypoxic failure also has small cell lung cancer which CONTRIBUTED to patient's progressive shortness of breath. Patient currently is off chemo treatment for now. Objective - Vital Signs Vital signs: Vital Signs Temp 97.9 F 10/31/16 07:00 Pulse 92 10/31/16 09:48 Resp 16 10/31/16 07:00 BP 131/69 10/31/16 07:00 Pulse Ox 93 L 10/31/16 07:00 Intake & Output 10/30/16 10/31/16 10/31/16 18:59 06:59 18:59 Intake Total 600 780 Balance 600 780 Weight 74.389 kg Intake: IV 600 Sodium Chloride 0.9% 1, 600 000 ml @ 75 mls/hr IV . [id number] [facility] Rx#:[id number] Intake, IV Titration 600 Amount Sodium Chloride 0.9% 1, 600 000 ml @ 75 mls/hr IV . [id number] [facility] Rx#:[id number] Oral 180 Other: Voiding Method Toilet Toilet # Voids 1 1 # Bowel Movements 1 - Exam Physical exam 80-year-old male resting in bed continues to be very short of breath with exertion oxygen on at 3 L patient denies dizziness lightheadedness states has not been coughing pleasant cooperative speaks in a hoarse whispered voice Lungs diminished at the bases bilateral few expiratory wheezing noted currently on 4 L Heart S1-S2 audible and regular Abdomen soft nontender no reports of frequent stooling no incontinence of urine Extremities no edema noted - Labs CBC & Chem 7: 10/29/16 13:25 10/29/16 15:00 Labs: Abnormal Lab Results - Last 24 Hours (Table) 10/30/16 10/30/16 10/31/16 Range/Units 17:22 20:56 07:23 POC Glucose (mg/dL) 351 H 364 H 261 H (75-99) mg/dL 10/31/16 Range/Units 11:53 POC Glucose (mg/dL) 263 H (75-99) mg/dL Microbiology - Last 24 Hours (Table) 10/29/16 15:00 Blood Culture - Preliminary Blood No Growth after 24 hours 10/30/16 03:00 Urine Culture - Preliminary Urine,Voided Assessment and Plan Plan: Impression Present on admission shortness of breath likely due to an acute exacerbation of COPD Type 2 diabetes insulin requiring hyperglycemia episodes likely due to steroids History of small cell lung cancer progression of tumor diagnosed in 2013 undergo on chemotherapy last treatment July 2016 CAT scan of the chest on August 29 shows a 7 by 5 irregular mass above the left pulmonary hilum consistent with a tumor 08/08/2016 left subclavian Port-A-Cath insertion for lung cancer for chemotherapy Chronic hypoxic respiratory failure 3 L [id number] supplemental home O2 Debilitated due to comorbidities Microscopic hematuria present on admission Plan Monitor blood sugars use the recall while on IV Solu-Medrol Possible discharge in the next 24-48 hours DVT and GI prophylaxis Send urine for UA and a urine culture follow up on results Further recommendations pending The above dictated assessment and findings were discussed with dr camejo . Impression and the plan of care have been dictated as directed. Esther Brenner nurse practitioner acting as a scribe for dr camejo ].
--- NOTE | 2016-10-31 13:40 | CDI ---
In responding to this query, please exercise your independent professional judgment. The [facility] Coding Staff and Clinical Documentation Specialists appreciate your assistance in clarifying documentation, maintaining compliance with coding guidelines, accurately documenting patients condition and capturing severity of illness. The fact that a question is asked does not imply that any particular answer is desired or expected. Communication forms are a method of clarifying documentation and are not made part of the Legal Health Record. Thank you in advance for your clarification. Last Revision, March 2015 Neto Barajas [address] [address] Documentation Clarification Form Date: 10/31/2016 1:19:00 PM From: Maria Eugenia Van CCS, CCDS Admit Date: 10/29/2016 3:10:00 PM Patient Name: Juan Hatch Visit Number: [id number] Discharge Date: Dr. Fer Cordero: History/Risk Factors: History of small cell lung CA, presented with hoarseness & extreme SOB. Clinical Indicators: Per the H&P, the patient has chronic renal failure. Per the pulmonary consult: CAT scan of the chest ordered... We'll do this without contrast based on the patient's underlying chronic renal failure. LAB: BUN 52^, Creatinine 2.67^, GFR 23, Glucose 290^ Treatment: IV Levaquin, IV Steroids, Neb INH, Blood, Sputum & urine cultures pending. Insulin sc, IV fluid rate 75. Per H/P: possible renal consult. Oncology & Pulmonary consulted. In order to capture the severity of condition, please clarify if the condition signifies: CKD Stage 1 (GFR > 90) CKD Stage 2 (GFR 60-89) CKD Stage 3 (GFR 30-59) CKD Stage 4 (GFR 15-29) CKD Stage 5 (GFR <15) ESRD Unable to determine Other condition, please specify Please document in your progress notes and discharge summary in order to capture severity of illness and risk of mortality. Include clinical findings that support your diagnosis. FYI: Press F11 to launch patient chart. Place X here if this finding has no clinical significance, is not applicable or if you are not able to provide any additional documentation. Thank You. ALLEN
[2016-10-31] MEDS ORDERED: LEVOFLOXACIN 250 MG TAB PO SCH (16:00)
--- NOTE | 2016-10-31 16:39 | P.PN ---
Subjective 80-year-old male patient with known history of advanced COPD, and history of small cell lung cancer that was diagnosed approximately a year ago. Back then the patient presented with hoarseness and further investigation showed that the patient had a left hilar mass that was ultimately diagnosed being a small cell lung cancer. His diagnosis was established at the [facility] in July 2014. The patient had extensive stage disease. The patient required systemic chemotherapy and he completed 6 sessions of carboplatinum and [employer]-16. Treatment monitoring by a CAT scan of the chest on 11/08/2014 revealed significant improvement in the disease compared to the prior CAT scan. The patient completed 4 cycles of systemic chemotherapy by November 2014. Treatment follow-up on another CAT scan on 02/03/2015 revealed significant improvement and a follow- up CAT scan on 05/11/2015 revealed no evidence of any progression. Subsequent CAT scan from November 2015 showed evidence of disease progression and increase in the size of the left upper lobe/hilar mass. The patient was given Taxol treatment on 12/20/2015. Treatment evaluation CAT scan on 02/14/2016 revealed stable disease. He completed a total of 4 cycles of Taxol on 02/21/2016. Around February 2016 the patient was hospitalized for pneumonia. CAT scan from 04/16/2016 and 06/11/2016 revealed slight increase in size of the left upper lobe mass. The patient accordingly was given 2 cycles of single agent salvage chemotherapy with carboplatinum Last CAT scan of the chest is from August 2016 and showed a large 7.5 x 5.5 cm irregular mass in the left hilum adjacent to the aortic arch and a small left-sided pleural effusion along with some few mediastinal lymph nodes measuring up to 1.5 cm in size in the paratracheal region. I'm seeing this patient in consultation today because of increased shortness of breath. He started having increased dyspnea, cough and congestion and his breathing got worse over the past week or so. No pleurisy. No chest pain. He is unable to bring up much sputum. He remains quite hoarse. He is oxygen dependent. He uses Advair as maintenance and a decision about she was treated for times a day [id number]. No nausea. No vomiting. No aspiration. No chest pain. No pleurisy. No hemoptysis. On 10/31/2016 I'm seeing the patient in follow-up. The patient is feeling better. The patient is less short of breath. No hemoptysis. No chest pain. CAT scan of chest was repeated and there is interval progression of the small cell lung cancer. There is enlargement of the left suprahilar mass and there is also development of lymphadenopathy. There is also small left-sided pleural effusion and limited consolidation of the left lung base. Oncology also saw the patient and apparently the patient has had a nevus discussion with Dr. Hsieh , the medical oncologist, and it seems that the patient has exhausted medical treatment terms of his lung cancer and he was asked to proceed with hospice care. Objective - Vital Signs Vital signs: Vital Signs Temp 97.9 F 10/31/16 07:00 Pulse 92 10/31/16 14:15 Resp 16 10/31/16 07:00 BP 131/69 10/31/16 07:00 Pulse Ox 93 L 10/31/16 07:00 Intake & Output 10/30/16 10/31/16 10/31/16 18:59 06:59 18:59 Intake Total 600 780 Balance 600 780 Weight 74.389 kg Intake: IV 600 Sodium Chloride 0.9% 1, 600 000 ml @ 75 mls/hr IV . [id number] [facility] Rx#:[id number] Intake, IV Titration 600 Amount Sodium Chloride 0.9% 1, 600 000 ml @ 75 mls/hr IV . [id number] [facility] Rx#:[id number] Oral 180 Other: Voiding Method Toilet Toilet # Voids 1 1 # Bowel Movements 1 - Exam Head exam was generally normal. There was no scleral icterus or corneal arcus. Mucous membranes were moist.Neck was supple and without jugular venous distension, thyromegaly, or carotid bruits. Carotids were easily palpable bilaterally. There was no adenopathy. Lung sounds are diminished bilaterally along with that there is scattered expiratory wheezes throughout the lung ramírez. There is also indication of expiratory phase of breathing.Cardiac exam revealed the PMI to be normally situated and sized. The rhythm was regular and no extrasystoles were noted during several minutes of auscultation. The first and second heart sounds were normal and physiologic splitting of the second heart sound was noted. There were no murmurs, rubs, clicks, or gallops.Abdominal exam revealed normal bowel sounds. The abdomen was soft, non- tender, and without masses, organomegaly, or appreciable enlargement of the abdominal aorta.Examination of the extremities revealed easily palpable radial, femoral and pedal pulses. There was no cyanosis, clubbing or edema.. - Labs CBC & Chem 7: 10/29/16 13:25 10/29/16 15:00 Labs: Abnormal Lab Results - Last 24 Hours (Table) 10/30/16 10/30/16 10/31/16 Range/Units 17:22 20:56 07:23 POC Glucose (mg/dL) 351 H 364 H 261 H (75-99) mg/dL 10/31/16 Range/Units 11:53 POC Glucose (mg/dL) 263 H (75-99) mg/dL Microbiology - Last 24 Hours (Table) 10/30/16 03:00 Urine Culture - Final Urine,Voided 10/29/16 15:00 Blood Culture - Preliminary Blood No Growth after 24 hours Assessment and Plan Plan: Assessment 1 shortness of breath secondary acute COPD exacerbation. In fact the patient shortness of breath is multifactorial. 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 Decompensating factor is suspected to be an acute COPD exacerbation. The chest x-ray is showing findings consistent with lung cancer with a abnormal density in the left hilar area. No evidence of an acute pneumonia at this point 2 COPD advanced with chronic hypoxic respiratory failure 3 small cell lung cancer and diagnostic and therapeutic circumstances mentioned above, followed up by Dr. 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 Clinically the patient is improving. However, the CAT scan of the chest was reviewed and there is obvious interval progression and the small cell lung cancer. There is enlargement of the left hilar mass and there is development of mediastinal lymphadenopathy. There is also a left-sided pleural effusion and atelectasis/ consolidation. Prognosis obviously poor. The patient has been labeled to be a good hospice candidate by medical oncology. He remains hoarse. He is being treated for his acute COPD exacerbation. We'll continue to follow. Prognosis poor. Continue the oral Lasix. Continued IV Solu-Medrol and wean it down to 40 mg IV every 8 hours. Continue Levaquin. We'll follow.
[2016-10-31 17:43] LABS: Glucose,Whole Blood 226 mg/dL (75-99)
[2016-10-31 20:09] LABS: Glucose,Whole Blood 304 mg/dL (75-99)
[2016-11-01] MEDS: methylPREDNISolone SOD SUCCI 40 MG/ML 1 ML VIAL IV SCH ×2 (00:24→08:20)
[2016-11-01 07:26] LABS: Glucose,Whole Blood 180 mg/dL (75-99)
[2016-11-01] MEDS: DRONABINOL 2.5 MG CAP PO SCH (08:19)
[2016-11-01] MEDS: METOPROLOL SUCCINATE (ER) 50 MG TAB.ER.24H PO SCH (08:20)
[2016-11-01] MEDS: INSULIN LISPRO (humaLOG) 300 UNIT/3 ML VIAL SQ SCH (08:20)
[2016-11-01] MEDS: SODIUM BICARBONATE TAB 650 MG TAB PO SCH (08:20)
[2016-11-01] MEDS: FUROSEMIDE 20 MG TAB PO SCH (08:20)
[2016-11-01] MEDS: INSULIN GLARGINE 100 UNIT/ML 10 ML VIAL SQ SCH (08:20)
--- NOTE | 2016-11-01 08:43 | P.DS ---
Providers Date of admission: 10/29/16 15:10 Expected date of discharge: 11/01/16 Attending physician: Fer Camejo Consults: 10/29/16 15:08 Consult Physician Routine Consulting Provider: Luc Nelson Consult Reason/Comments: dyspnea Do you want consulting provider notified?: Yes Consult Physician Routine Consulting Provider: Armaan Campa Consult Reason/Comments: Oncological care Do you want consulting provider notified?: Yes Primary care physician: [facility] Course: 80-year-old male who presented on the day of admission to the emergency room chief complaint of experiencing shortness of breath with decreased endurance decrease functionality with a occasional cough coughing up yellowish secretions. Patient denied chest pain. Patient denied any fever chills. Patient stated his symptoms were similar to previously episodes of exacerbation of COPD. Patient stated at home he was only able to ambulate a short distance needed to stop because he felt short of breath. The chest x-ray show chronic changes without any evidence of an acute infiltrate consistent with the diagnosis of lung cancer. Patient's last hospitalization for similar symptoms was in August 09 2016. Patient has chronic hypoxic respiratory failure uses oxygen at home 2-3 L [id number]. Patient's primary oncologist is Dr. Arriaga. Patient was seen last in the office by Dr. Arriaga on September 23. Dr. Hsieh had a discussion with the patient and his at that time. He reviewed poor prognosis and did not feel that the patient was a candidate for any more systemic therapy in view of patient's very poor performance status. Comfort care with hospice was discussed. However at that time the patient wanted to continue with home visiting nurses and that they may consider hospice down the road. Patient was to see Dr. Arriaga and a follow-up visit December 02. This admission patient was seen by Dr. Campa. As well as Dr. Foster pulmonary. Patient has a history of lung cancer diagnosed in 2014. Additionally patient has a history of vocal cord paralysis. Has been [facility]. In February 2015 CAT scan of the neck was negative. Patient was noted to have a lung mass. CAT scan of the chest in July 2014 showed a large mass. Patient had a staging PET scan done in July 2014 he was suspicious and consistent with metastatic disease. Patient did have a prompt done and was positive for small cell lung cancer. Patient was anxious to be discharged and wanted to go home on the october. Patient states he will see Dr. Arriaga and discuss options comfort palliative hospice care in the outpatient setting subsequent the patient was felt to be hemodynamically stable and appropriate proceed with a discharge to home. Patient was treated by pulmonology for an acute exacerbation of COPD. Impression Present on admission shortness of breath likely due to an acute exacerbation of COPD Type 2 diabetes insulin requiring hyperglycemia episodes likely due to steroids History of small cell lung cancer progression of tumor diagnosed in 2013 undergo on chemotherapy last treatment July 2016 CAT scan of the chest on August 29 shows a 7 by 5 irregular mass above the left pulmonary hilum consistent with a tumor 08/08/2016 left subclavian Port-A-Cath insertion for lung cancer for chemotherapy Chronic hypoxic respiratory failure 3 L [id number] supplemental home O2 Debilitated due to comorbidities Microscopic hematuria present on admission Present on admission stage IV chronic kidney disease Acute on chronic stage IV kidney disease Acute renal failure present on admission suspect due to poor oral intake Present on admission clinical dehydration due to poor oral intake The above dictated assessment and findings were discussed with dr camejo . Impression and the plan of care have been dictated as directed. Esther Brenner nurse practitioner acting as a scribe for dr camejo ]. Plan - Discharge Summary New Discharge Prescriptions: New Levofloxacin [Levaquin] 250 mg PO DAILY@1600 #5 tab Dronabinol [Marinol] 2.5 mg PO AC-BID #60 cap predniSONE 20 mg PO DAILY #12 tab Continue Sodium Bicarbonate Tab 650 mg PO BID Albuterol Inhaler [Ventolin Hfa Inhaler] 2 puff INHALATION RT-QID PRN PRN Reason: Shortness Of Breath Metoprolol Succinate (ER) [Toprol XL] 50 mg PO DAILY Insulin Aspart [NovoLOG] See Protocol SQ AC-TID Furosemide [Lasix] 20 mg PO DAILY Fluticasone/Salmeterol [Advair Hfa 115-21 Mcg Inhaler] 1 puff INHALATION RT- BID Discharge Medication List Sodium Bicarbonate Tab 650 mg PO BID 02/24/16 [History] Albuterol Inhaler [Ventolin Hfa Inhaler] 2 puff INHALATION RT-QID PRN 02/25/16 [ History] Fluticasone/Salmeterol [Advair Hfa 115-21 Mcg Inhaler] 1 puff INHALATION RT-BID 08/05/16 [History] Furosemide [Lasix] 20 mg PO DAILY 08/05/16 [History] Insulin Aspart [NovoLOG] See Protocol SQ AC-TID 08/05/16 [History] Metoprolol Succinate (ER) [Toprol XL] 50 mg PO DAILY 08/05/16 [History] Dronabinol [Marinol] 2.5 mg PO AC-BID #60 cap 11/01/16 [Rx] Levofloxacin [Levaquin] 250 mg PO DAILY@1600 #5 tab 11/01/16 [Rx] predniSONE 20 mg PO DAILY #12 tab 11/01/16 [Rx] Follow up Appointment(s)/Referral(s): Fer Camejo MD [Primary Care Provider] - 1-2 days Simin Hsieh MD [STAFF PHYSICIAN] - 12/02/16 2:45 pm Discharge Disposition: HOME WITH HOME HEALTH SERVICES
[2016-11-01 08:59] VITALS: BP 138/60; PULSE 89; RESP 19; TEMP 97.9
[2016-11-01] MEDS: IPRATROPIUM-ALBUTEROL 3 ML NEB INHALATION SCH (09:34)
--- NOTE | 2016-11-01 12:53 | P.PN ---
Subjective 80-year-old male patient with known history of advanced COPD, and history of small cell lung cancer that was diagnosed approximately a year ago. Back then the patient presented with hoarseness and further investigation showed that the patient had a left hilar mass that was ultimately diagnosed being a small cell lung cancer. His diagnosis was established at the [facility] in July 2014. The patient had extensive stage disease. The patient required systemic chemotherapy and he completed 6 sessions of carboplatinum and [employer]-16. Treatment monitoring by a CAT scan of the chest on 11/08/2014 revealed significant improvement in the disease compared to the prior CAT scan. The patient completed 4 cycles of systemic chemotherapy by November 2014. Treatment follow-up on another CAT scan on 02/03/2015 revealed significant improvement and a follow- up CAT scan on 05/11/2015 revealed no evidence of any progression. Subsequent CAT scan from November 2015 showed evidence of disease progression and increase in the size of the left upper lobe/hilar mass. The patient was given Taxol treatment on 12/20/2015. Treatment evaluation CAT scan on 02/14/2016 revealed stable disease. He completed a total of 4 cycles of Taxol on 02/21/2016. Around February 2016 the patient was hospitalized for pneumonia. CAT scan from 04/16/2016 and 06/11/2016 revealed slight increase in size of the left upper lobe mass. The patient accordingly was given 2 cycles of single agent salvage chemotherapy with carboplatinum Last CAT scan of the chest is from August 2016 and showed a large 7.5 x 5.5 cm irregular mass in the left hilum adjacent to the aortic arch and a small left-sided pleural effusion along with some few mediastinal lymph nodes measuring up to 1.5 cm in size in the paratracheal region. I'm seeing this patient in consultation today because of increased shortness of breath. He started having increased dyspnea, cough and congestion and his breathing got worse over the past week or so. No pleurisy. No chest pain. He is unable to bring up much sputum. He remains quite hoarse. He is oxygen dependent. He uses Advair as maintenance and a decision about she was treated for times a day [id number]. No nausea. No vomiting. No aspiration. No chest pain. No pleurisy. No hemoptysis. On 10/31/2016 I'm seeing the patient in follow-up. The patient is feeling better. The patient is less short of breath. No hemoptysis. No chest pain. CAT scan of chest was repeated and there is interval progression of the small cell lung cancer. There is enlargement of the left suprahilar mass and there is also development of lymphadenopathy. There is also small left-sided pleural effusion and limited consolidation of the left lung base. Oncology also saw the patient and apparently the patient has had a nevus discussion with Dr. Hsieh , the medical oncologist, and it seems that the patient has exhausted medical treatment terms of his lung cancer and he was asked to proceed with hospice care. The patient is seen again today 11/01/2016 in follow-up on the oncology unit. He is awake and alert in no acute distress. He does however have continued shortness of breath on minimal exertion. He is maintaining good O2 saturations in the 90s on 4 L/m per nasal cannula. He is afebrile. The patient is requesting to go home with hospice today. Objective - Vital Signs Vital signs: Vital Signs Temp 97.9 F 11/01/16 07:00 Pulse 89 11/01/16 07:00 Resp 19 11/01/16 07:00 BP 138/60 11/01/16 07:00 Pulse Ox 95 11/01/16 07:00 Intake & Output 10/31/16 11/01/16 11/01/16 18:59 06:59 18:59 Intake Total 360 900 Balance 360 900 Intake: IV 900 Sodium Chloride 0.9% 1, 900 000 ml @ 75 mls/hr IV . [id number] [facility] Rx#:[id number] Oral 360 Other: Voiding Method Toilet Toilet Toilet # Voids 2 4 # Bowel Movements 1 - Exam Head exam was generally normal. There was no scleral icterus or corneal arcus. Mucous membranes were moist.Neck was supple and without jugular venous distension, thyromegaly, or carotid bruits. Carotids were easily palpable bilaterally. There was no adenopathy. Lung sounds are diminished bilaterally along with that there is scattered expiratory wheezes throughout the lung ramírez. There is also indication of expiratory phase of breathing.Cardiac exam revealed the PMI to be normally situated and sized. The rhythm was regular and no extrasystoles were noted during several minutes of auscultation. The first and second heart sounds were normal and physiologic splitting of the second heart sound was noted. There were no murmurs, rubs, clicks, or gallops.Abdominal exam revealed normal bowel sounds. The abdomen was soft, non- tender, and without masses, organomegaly, or appreciable enlargement of the abdominal aorta.Examination of the extremities revealed easily palpable radial, femoral and pedal pulses. There was no cyanosis, clubbing or edema. - Labs CBC & Chem 7: 10/29/16 13:25 10/29/16 15:00 Labs: Abnormal Lab Results - Last 24 Hours (Table) 10/31/16 10/31/16 11/01/16 Range/Units 17:41 20:07 07:20 POC Glucose (mg/dL) 226 H 304 H 180 H (75-99) mg/dL Microbiology - Last 24 Hours (Table) 10/29/16 16:13 Gram Stain - Final Sputum Sputum Culture - Final 10/29/16 15:00 Blood Culture - Preliminary Blood No Growth after 48 hours 10/30/16 03:00 Urine Culture - Final Urine,Voided Assessment and Plan Plan: Assessment 1 shortness of breath secondary acute COPD exacerbation. In fact the patient shortness of breath is multifactorial. 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 Decompensating factor is suspected to be an acute COPD exacerbation. The chest x-ray is showing findings consistent with lung cancer with a abnormal density in the left hilar area. No evidence of an acute pneumonia at this point 2 COPD advanced with chronic hypoxic respiratory failure 3 small cell lung cancer and diagnostic and therapeutic circumstances mentioned above, followed up by Dr. 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 Foster. The patient is requesting to go home with hospice which is a reasonable request based on his overall poor prognosis. We'll assure he has oxygen, bronchodilators and medication for pain control.
== END 2016-11-01 11:45 | disposition home or self-care (01) | DRG 191 ==
LOC: EC 12:30 → 5ONC 15:10
PROVIDERS: ADMIT Family Medicine; ATTEND Family Medicine
DX: J44.1 Chronic obstructive pulmonary disease with (acute) exacerbation (principal); N18.4 Chronic kidney disease, stage 4 (severe); J96.11 Chronic respiratory failure with hypoxia; C77.1 Secondary and unspecified malignant neoplasm of intrathoracic lymph nodes; N17.9 Acute kidney failure, unspecified; J90 Pleural effusion, not elsewhere classified; C34.02 Malignant neoplasm of left main bronchus; C78.7 Secondary malignant neoplasm of liver and intrahepatic bile duct; E11.22 Type 2 diabetes mellitus with diabetic chronic kidney disease; J38.01 Paralysis of vocal cords and larynx, unilateral; E11.65 Type 2 diabetes mellitus with hyperglycemia; R31.29 Other microscopic hematuria; I12.9 Hypertensive chronic kidney disease with stage 1 through stage 4 chronic kidney disease, or unspecified chronic kidney disease; E78.5 Hyperlipidemia, unspecified; Z51.5 Encounter for palliative care; T38.0X5A Adverse effect of glucocorticoids and synthetic analogues, initial encounter; I25.10 Atherosclerotic heart disease of native coronary artery without angina pectoris; M19.91 Primary osteoarthritis, unspecified site; Z96.653 Presence of artificial knee joint, bilateral; Z99.81 Dependence on supplemental oxygen; Z87.01 Personal history of pneumonia (recurrent); Z98.42 Cataract extraction status, left eye; Z98.41 Cataract extraction status, right eye; Z87.891 Personal history of nicotine dependence; Z79.4 Long term (current) use of insulin; Z79.51 Long term (current) use of inhaled steroids; Z79.899 Other long term (current) drug therapy; Z82.5 Family history of asthma and other chronic lower respiratory diseases; Z92.21 Personal history of antineoplastic chemotherapy
CPT/HCPCS: 36415; 71020; 71250; 80053; 81001; 83036; 83605; 85025; 85610; 85730; 87040; 87070; 87086; 87205; 93005; 94640; 96374; 99285

== ENCOUNTER 2016-11-12 07:28 | Inpatient (IN) | payer MEDICARE, BC ==
[2016-11-12] MEDS ORDERED: IPRATROPIUM 0.5 MG/2.5 ML NEBU INHALATION STA ×2 (07:29→09:08)
[2016-11-12] MEDS ORDERED: methylPREDNISolone SOD SUCCI 125 MG/2 ML VIAL IV STA (07:29)
[2016-11-12] MEDS ORDERED: ALBUTEROL NEBULIZED 2.5 MG/3 ML INHALATION STA (07:29)
[2016-11-12] MEDS ORDERED: SODIUM CHLORIDE 0.9% 1,000 ML IV STA (07:29)
[2016-11-12] MEDS ORDERED: LEVOFLOXACIN 750MG-D5W PMX 750 MG in DEXTROSE/WATER 1 150ML.BAG IVPB STA (07:54)
[2016-11-12] MEDS ORDERED: SODIUM CHLORIDE 0.9% 500 ML IV STA (07:55)
[2016-11-12] MEDS ORDERED: SODIUM CHLORIDE 0.9% 2,000 ML IV STA (07:55)
[2016-11-12] MEDS ORDERED: PIPERACILLIN-TAZOBACTAM 3.375 GM in DEXTROSE/WATER 1 50ML.BAG IVPB STA (07:56)
--- NOTE | 2016-11-12 07:56 | ED ---
General Adult HPI - General Chief complaint: Shortness of Breath Stated complaint: Diff breathing Time Seen by Provider: 11/12/16 07:29 Source: EMS, RN notes reviewed, old records reviewed Mode of arrival: EMS Limitations: no limitations - History of Present Illness Initial comments: This is a 72-year-old male here for evaluation of significant shortness of breath. Patient is significant medical history is consistent for COPD, lung cancer. Patient states retrocerebellar day and a half getting progressively worse. He admits weakness and not feeling well. Denies fevers. Patient's currently going to chemotherapy treatment. Secondary to lung cancer. Patient does have increased cough and congestion. Denies chest pain. - Related Data Home Medications Medication Instructions Recorded Confirmed Sodium Bicarbonate Tab 650 mg PO BID 02/24/16 11/12/16 Albuterol Inhaler [Ventolin Hfa 2 puff INHALATION RT-QID PRN 02/25/16 11/12/16 Inhaler] Fluticasone/Salmeterol [Advair Hfa 1 puff INHALATION RT-BID 08/05/16 11/12/16 115-21 Mcg Inhaler] Furosemide [Lasix] 20 mg PO DAILY 08/05/16 11/12/16 Insulin Aspart [NovoLOG] See Protocol SQ AC-TID 08/05/16 11/12/16 Metoprolol Succinate (ER) [Toprol 50 mg PO DAILY 08/05/16 11/12/16 XL] Previous Rx's Medication Instructions Recorded Dronabinol [Marinol] 2.5 mg PO AC-BID #60 cap 11/01/16 Allergies Allergy/AdvReac Type Severity Reaction Status Date / Time No Known Allergies Allergy Verified 11/12/16 08:19 Review of Systems ROS Statement: Those systems with pertinent positive or pertinent negative responses have been documented in the HPI. ROS Other: All systems not noted in ROS Statement are negative. 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 Chronic hypoxic respiratory failure. History of Any Multi-Drug Resistant Organisms: None Reported Past Surgical History: Adenoidectomy, Hernia Repair, Orthopedic Surgery, Tonsillectomy Additional Past Surgical History / Comment(s): bilateral knee replacement, pin in right ankle, "rectal fissure sx long time ago", "bronchoscopy/bx", laina cataracts, micro laryngoscopy 2013. Past Anesthesia/Blood Transfusion Reactions: No Reported Reaction Additional Past Anesthesia/Blood Transfusion Reaction / Comment(s): clausterphobia. had 1 blood transfusion- no reaction. Past Psychological History: No Psychological Hx Reported Smoking Status: Former smoker Past Alcohol Use History: None Reported Past Drug Use History: None Reported - Past Family History Father Family Medical History: COPD Additional Family Medical History / Comment(s): emphysemas(smoker) Brother(s) Family Medical History: Cancer Additional Family Medical History / Comment(s): prostate cancer Sister(s) Family Medical History: COPD Mother Family Medical History: Dementia Additional Family Medical History / Comment(s): alzhiemers lived to be 102 General Exam Limitations: no limitations General appearance: alert, in distress, cachectic Head exam: Present: atraumatic, normocephalic, normal inspection Eye exam: Present: normal appearance, PERRL, EOMI. Absent: scleral icterus, conjunctival injection, periorbital swelling ENT exam: Present: normal exam, mucous membranes moist Neck exam: Present: normal inspection. Absent: tenderness, meningismus, lymphadenopathy Respiratory exam: Present: normal lung sounds bilaterally, respiratory distress , wheezes, accessory muscle use, decreased breath sounds, prolonged expiratory. Absent: rales, rhonchi, stridor Cardiovascular Exam: Present: normal rhythm, tachycardia, normal heart sounds. Absent: systolic murmur, diastolic murmur, rubs, gallop, clicks GI/Abdominal exam: Present: soft, normal bowel sounds. Absent: distended, tenderness, guarding, rebound, rigid Extremities exam: Present: normal inspection, full ROM, normal capillary refill. Absent: tenderness, pedal edema, joint swelling, calf tenderness Back exam: Present: normal inspection Neurological exam: Present: alert, oriented X3, CN II-XII intact Psychiatric exam: Present: normal affect, normal mood Skin exam: Present: warm, dry, intact, normal color. Absent: rash Course Vital Signs 11/12/16 11/12/16 11/12/16 07:30 07:40 07:47 Temperature 97.3 F L Pulse Rate 130 H 124 H Respiratory 30 H 16 Rate Blood Pressure 76/39 92/50 O2 Sat by Pulse 89 L Oximetry 11/12/16 11/12/16 11/12/16 07:51 07:57 08:01 Temperature 98.5 F Pulse Rate 124 H 103 H Respiratory 28 H Rate Blood Pressure 88/53 96/53 O2 Sat by Pulse 97 Oximetry 11/12/16 11/12/16 11/12/16 08:07 08:20 08:28 Temperature Pulse Rate 124 H 124 H 115 H Respiratory 16 18 28 H Rate Blood Pressure 105/54 O2 Sat by Pulse 96 Oximetry 11/12/16 11/12/16 09:21 09:25 Temperature Pulse Rate 103 H 130 H Respiratory 18 26 H Rate Blood Pressure 92/53 O2 Sat by Pulse 95 Oximetry - Reevaluation(s) Reevaluation #1: 11/12/16 09:35 Patient does have improvement breathing after prolonged breathing treatment, will repeat patient's breathing treatment Reevaluation #2: 11/12/16 09:36 The patient given IV fluid bolus, blood pressure is responding EKG Findings - EKG Comments: EKG Findings:: EKG shows sinus tachycardia rate 127, MS 1:30, QRS 86, QTC 447 Medical Decision Making - Medical Decision Making 80 male ER for evaluation severe shortness of breath 2 days. No fever but elevated white count, likely pneumonia on x-ray and underlying COPD with lung cancer. Patient will be admitted for IV antibiotics, patient is severely dehydrated and will be fluid resuscitated, started on IV antibiotics and admitted for cardiopulmonary resuscitation and hemodynamic monitoring - Lab Data Result diagrams: 11/12/16 07:48 11/12/16 07:48 Lab Results 11/12/16 11/12/16 11/12/16 Range/Units 07:48 07:48 07:48 WBC 18.2 H (3.8-10.6) k/uL RBC 3.74 L (4.30-5.90) m/uL Hgb 12.2 L (13.0-17.5) gm/dL Hct 37.4 L (39.0-53.0) % MCV 100.0 (80.0-100.0) fL MCH 32.7 (25.0-35.0) pg MCHC 32.8 (31.0-37.0) g/dL RDW 15.0 (11.5-15.5) % Plt Count 113 L (150-450) k/uL Neutrophils % 93 % Lymphocytes % 3 % Monocytes % 3 % Eosinophils % 0 % Basophils % 0 % Neutrophils # 17.0 H (1.3-7.7) k/uL Lymphocytes # 0.6 L (1.0-4.8) k/uL Monocytes # 0.6 (0-1.0) k/uL Eosinophils # 0.0 (0-0.7) k/uL Basophils # 0.0 (0-0.2) k/uL Macrocytosis Slight PT (9.0-12.0) sec INR (<1.1) APTT (22.0-30.0) sec Sodium 146 H (137-145) mmol/L Potassium 4.6 (3.5-5.1) mmol/L Chloride 112 H (98-107) mmol/L Carbon Dioxide 18 L (22-30) mmol/L Anion Gap 16 mmol/L BUN 107 H* (9-20) mg/dL Creatinine 4.33 H (0.66-1.25) mg/dL Est GFR (MDRD) Af Amer 16 (>60 ml/min/1.73 sqM) Est GFR (MDRD) Non-Af 13 (>60 ml/min/1.73 sqM) Glucose 243 H (74-99) mg/dL POC Glucose (mg/dL) (75-99) mg/dL POC Glu Grading Clerk ID Plasma Lactic Acid Epifanio (0.7-2.0) mmol/L Calcium 7.9 L (8.4-10.2) mg/dL Magnesium 2.3 (1.6-2.3) mg/dL Total Bilirubin 0.7 (0.2-1.3) mg/dL AST 27 (17-59) U/L ALT 24 (21-72) U/L Alkaline Phosphatase 123 (38-126) U/L Total Creatine Kinase 52 L (55-170) U/L CK-MB (CK-2) 3.0 H* (0.0-2.4) ng/mL CK-MB (CK-2) Rel Index 5.8 Troponin I 0.041 H* (0.000-0.034) ng/mL NT-Pro-B Natriuret Pep pg/mL Total Protein 4.9 L (6.3-8.2) g/dL Albumin 2.6 L (3.5-5.0) g/dL 11/12/16 11/12/16 11/12/16 Range/Units 07:48 07:48 07:48 WBC (3.8-10.6) k/uL RBC (4.30-5.90) m/uL Hgb (13.0-17.5) gm/dL Hct (39.0-53.0) % MCV (80.0-100.0) fL MCH (25.0-35.0) pg MCHC (31.0-37.0) g/dL RDW (11.5-15.5) % Plt Count (150-450) k/uL Neutrophils % % Lymphocytes % % Monocytes % % Eosinophils % % Basophils % % Neutrophils # (1.3-7.7) k/uL Lymphocytes # (1.0-4.8) k/uL Monocytes # (0-1.0) k/uL Eosinophils # (0-0.7) k/uL Basophils # (0-0.2) k/uL Macrocytosis PT 12.5 H (9.0-12.0) sec INR 1.3 (<1.1) APTT 23.3 (22.0-30.0) sec Sodium (137-145) mmol/L Potassium (3.5-5.1) mmol/L Chloride (98-107) mmol/L Carbon Dioxide (22-30) mmol/L Anion Gap mmol/L BUN (9-20) mg/dL Creatinine (0.66-1.25) mg/dL Est GFR (MDRD) Af Amer (>60 ml/min/1.73 sqM) Est GFR (MDRD) Non-Af (>60 ml/min/1.73 sqM) Glucose (74-99) mg/dL POC Glucose (mg/dL) (75-99) mg/dL POC Glu Grading Clerk ID Plasma Lactic Acid Epifanio 4.6 H* (0.7-2.0) mmol/L Calcium (8.4-10.2) mg/dL Magnesium (1.6-2.3) mg/dL Total Bilirubin (0.2-1.3) mg/dL AST (17-59) U/L ALT (21-72) U/L Alkaline Phosphatase (38-126) U/L Total Creatine Kinase (55-170) U/L CK-MB (CK-2) (0.0-2.4) ng/mL CK-MB (CK-2) Rel Index Troponin I (0.000-0.034) ng/mL NT-Pro-B Natriuret Pep 2450 pg/mL Total Protein (6.3-8.2) g/dL Albumin (3.5-5.0) g/dL 11/12/16 Range/Units 08:04 WBC (3.8-10.6) k/uL RBC (4.30-5.90) m/uL Hgb (13.0-17.5) gm/dL Hct (39.0-53.0) % MCV (80.0-100.0) fL MCH (25.0-35.0) pg MCHC (31.0-37.0) g/dL RDW (11.5-15.5) % Plt Count (150-450) k/uL Neutrophils % % Lymphocytes % % Monocytes % % Eosinophils % % Basophils % % Neutrophils # (1.3-7.7) k/uL Lymphocytes # (1.0-4.8) k/uL Monocytes # (0-1.0) k/uL Eosinophils # (0-0.7) k/uL Basophils # (0-0.2) k/uL Macrocytosis PT (9.0-12.0) sec INR (<1.1) APTT (22.0-30.0) sec Sodium (137-145) mmol/L Potassium (3.5-5.1) mmol/L Chloride (98-107) mmol/L Carbon Dioxide (22-30) mmol/L Anion Gap mmol/L BUN (9-20) mg/dL Creatinine (0.66-1.25) mg/dL Est GFR (MDRD) Af Amer (>60 ml/min/1.73 sqM) Est GFR (MDRD) Non-Af (>60 ml/min/1.73 sqM) Glucose (74-99) mg/dL POC Glucose (mg/dL) 259 H (75-99) mg/dL POC Glu Grading Clerk ID Renuka Ferris Plasma Lactic Acid Epifanio (0.7-2.0) mmol/L Calcium (8.4-10.2) mg/dL Magnesium (1.6-2.3) mg/dL Total Bilirubin (0.2-1.3) mg/dL AST (17-59) U/L ALT (21-72) U/L Alkaline Phosphatase (38-126) U/L Total Creatine Kinase (55-170) U/L CK-MB (CK-2) (0.0-2.4) ng/mL CK-MB (CK-2) Rel Index Troponin I (0.000-0.034) ng/mL NT-Pro-B Natriuret Pep pg/mL Total Protein (6.3-8.2) g/dL Albumin (3.5-5.0) g/dL - Radiology Data Radiology results: report reviewed (Chest x-ray shows likely pneumonia with mild possible pleural effusions), image reviewed Critical Care Time Critical Care Time: Yes Total Critical Care Time: 31 Disposition Clinical Impression: COPD exacerbation, Pneumonia, Small cell lung cancer, Dehydration, Nosocomial pneumonia Disposition: ADMITTED IP TO THIS HOSP Condition: Fair Referrals: Fer Cordero MD [Primary Care Provider] - 1-2 days
[2016-11-12 08:06] LABS: Glucose,Whole Blood 259 mg/dL (75-99)
[2016-11-12 08:15] LABS: Basophils % (A) 0 %; CH 32.8; CHCM 32.9; Calcium 7.9 mg/dL (8.4-10.2); Eosinophils % (A) 0 %; HCT 37.4 % (39.0-53.0); HGB 12.2 gm/dL (13.0-17.5); INR 1.3 (<1.1); Luc # (Auto) 0.06; Luc % (Auto) 0; Lymphocytes # (A) 0.6 k/uL (1.0-4.8); Lymphocytes % (A) 3 %; MCH 32.7 pg (25.0-35.0); MCHC 32.8 g/dL (31.0-37.0); Macrocytosis Slight; Magnesium 2.3 mg/dL (1.6-2.3); Mean Platelet Volume 8.5; Monocytes # (A) 0.6 k/uL (0-1.0); Monocytes % (A) 3 %; Neutrophils % (A) 93 %; Partial Thromboplastin Time 23.3 sec (22.0-30.0); Potassium 4.6 mmol/L (3.5-5.1); Prothrombin Time 12.5 sec (9.0-12.0); RBC 3.74 m/uL (4.30-5.90); Total Bilirubin 0.7 mg/dL (0.2-1.3); Total Protein 4.9 g/dL (6.3-8.2); WBC 18.2 k/uL (3.8-10.6); WBC (Perox) 18.79
[2016-11-12 08:43] LABS: Troponin I 0.041 ng/mL (0.000-0.034)
--- NOTE | 2016-11-12 08:52 | XR ---
EXAMINATION TYPE: XR chest 2V DATE OF EXAM: 11/12/2016 COMPARISON: 09/28/2016 HISTORY: Shortness of breath FINDINGS: There are bilateral pleural effusions with cardiomegaly and bibasilar infiltrate. There is a diffuse interstitial pattern. Large left upper lobe lung mass seen. Chronic deformity of the rib cage. Right -sided Mediport catheter noted. Chronic appearing metallic density overlying the right hemithorax. IMPRESSION: 1. Large left upper lobe mass with increasing left perihilar and upper lobe area of patchy infiltrate and bilateral effusions. Stable right-sided filtration. Findings could been the basis of pneumonia o r CHF superimposed on a background of the left upper lobe mass. 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
[2016-11-12] MEDS ORDERED: ACETAMINOPHEN IV (For NPO) 1,000 MG in EMPTY BAG 1 BAG IVPB STA (09:02)
[2016-11-12] MEDS ORDERED: LEVALBUTEROL NEB 1.25 MG/3 ML AMP INHALATION STA (09:08)
[2016-11-12] MEDS ORDERED: LEVALBUTEROL NEB 1.25 MG/3 ML AMP INHALATION PRN (09:32)
[2016-11-12] MEDS ORDERED: PNEUMONIA PROTOCOL UTILIZED 1 EACH MISC PO PRN (09:32)
[2016-11-12] MEDS ORDERED: SODIUM CHLORIDE 0.9% 1,000 ML IV SCH (09:45)
[2016-11-12 10:49] LABS: Glucose,Whole Blood 156 mg/dL (75-99)
--- NOTE | 2016-11-12 11:06 | P.NPCON ---
History of Present Illness - Reason for Consult acute renal failure - History of Present Illness Reason for consultation: Acute kidney injury on chronic kidney disease History of present illness: Patient is a 80-year-old male seen in renal consultation for acute kidney injury on chronic kidney disease. Patient has chronic kidney disease stage IV secondary to diabetic kidney disease with baseline creatinine in the range of 2.1-2.3. Patient presented to the hospital with worsening dyspnea as well as congestion. Patient does a history of small cell lung cancer and is maintained on chemotherapy. His systolic blood pressure in the ER was in the 70s and he did receive 2-1/2 L of IV fluid resuscitation. He is currently maintained on normal saline at 100 mL an hour. He has a Alexandra catheter in place. Patient is not a very reliable historian and is not able to speak much due to vocal cord paralysis. Creatinine on admission is 4.33. His prior urinalysis revealed 1+ proteinuria without any hematuria. I do note Lasix and his home medications which is currently held at this time. Per records he hasn' t been eating and drinking much for the last couple of weeks and has also lost quite a bit of weight. Vital signs are stable systolic blood pressure in the 90s. General: Appears dyspneic. HEENT: Head exam is unremarkable. Neck is without jugular venous distension. LUNGS: Diffuse rhonchi. Breath sounds decreased. HEART: Rate and Rhythm are regular. First and second heart sounds normal. No murmurs, rubs or gallops. ABDOMEN: Abdominal exam reveals normal bowel sounds. Non-tender and non- distended. No evidence of peritonitis. EXTREMITITES: No clubbing, cyanosis, or edema. 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 Chronic hypoxic respiratory failure. History of Any Multi-Drug Resistant Organisms: None Reported Past Surgical History: Adenoidectomy, Hernia Repair, Orthopedic Surgery, Tonsillectomy Additional Past Surgical History / Comment(s): bilateral knee replacement, pin in right ankle, "rectal fissure sx long time ago", "bronchoscopy/bx", laina cataracts, micro laryngoscopy 2013. Past Anesthesia/Blood Transfusion Reactions: No Reported Reaction Additional Past Anesthesia/Blood Transfusion Reaction / Comment(s): clausterphobia. had 1 blood transfusion- no reaction. Past Psychological History: No Psychological Hx Reported Smoking Status: Former smoker Past Alcohol Use History: None Reported Past Drug Use History: None Reported - Past Family History Father Family Medical History: COPD Additional Family Medical History / Comment(s): emphysemas(smoker) Brother(s) Family Medical History: Cancer Additional Family Medical History / Comment(s): prostate cancer Sister(s) Family Medical History: COPD Mother Family Medical History: Dementia Additional Family Medical History / Comment(s): alzhiestevanrs lived to be 102 Medications and Allergies Home Medications Medication Instructions Recorded Confirmed Type Sodium Bicarbonate Tab 650 mg PO BID 02/24/16 11/12/16 History Albuterol Inhaler [Ventolin Hfa 2 puff INHALATION RT-QID PRN 02/25/16 11/12/16 History Inhaler] Fluticasone/Salmeterol [Advair Hfa 1 puff INHALATION RT-BID 08/05/16 11/12/16 History 115-21 Mcg Inhaler] Furosemide [Lasix] 20 mg PO DAILY 08/05/16 11/12/16 History Insulin Aspart [NovoLOG] See Protocol SQ AC-TID 08/05/16 11/12/16 History Metoprolol Succinate (ER) [Toprol 50 mg PO DAILY 08/05/16 11/12/16 History XL] Allergies Allergy/AdvReac Type Severity Reaction Status Date / Time No Known Allergies Allergy Verified 11/12/16 08:19 Physical Exam Vitals: Vital Signs Temp Pulse Resp BP Pulse Ox 11/12/16 10:03 97.0 F L 99 26 H 89/55 92 L 11/12/16 09:38 124 H 18 11/12/16 09:25 130 H 26 H 92/53 95 11/12/16 09:21 103 H 18 11/12/16 08:28 115 H 28 H 105/54 96 11/12/16 08:20 124 H 18 11/12/16 08:07 124 H 16 11/12/16 08:01 98.5 F 103 H 28 H 96/53 97 11/12/16 07:57 124 H 11/12/16 07:51 88/53 11/12/16 07:47 124 H 16 11/12/16 07:40 92/50 11/12/16 07:30 97.3 F L 130 H 30 H 76/39 89 L Intake and Output 11/11/16 11/12/16 11/12/16 22:59 06:59 14:59 Intake Total 112.5 Output Total 40 Balance 72.5 Intake: IV 112.5 Piperacillin-Tazobactam 3 12.5 .375 gm In Dextrose/Water 1 50ml.bag @ 12.5 mls/hr IVPB ONCE STA Rx#: [id number] Sodium Chloride 0.9% 1, 100 000 ml @ 100 mls/hr IV . [facility] Rx#:[id number] Output: Urine 40 Other: Weight 65.771 kg Patient Weight 11/13/16 06:59 Weight 65.771 kg Results - Lab Results Most recent lab results Calcium 7.9 mg/dL (8.4-10.2) L 11/12/16 07:48 Magnesium 2.3 mg/dL (1.6-2.3) 11/12/16 07:48 11/12/16 07:48 11/12/16 07:48 Assessment and Plan Plan: Assessment: #1. Acute kidney injury secondary to ischemic ATN secondary to hypotension and sepsis. Creatinine 4.3 on admission. #2. Chronic kidney disease stage IV secondary to diabetic kidney disease with baseline creatinine in the range of 2.1-2.3. #3. Small cell lung cancer. #4. Dyspnea due to pneumonia. #5. Metabolic acidosis secondary to acute kidney injury and lactic acidosis. #6. Mild hypernatremia secondary to lack of oral water intake. #7. Severe sepsis likely due to pneumonia. #8. Hypotension due to sepsis. Plan: Discontinue normal saline. Start half normal saline with 75 meq of sodium bicarbonate to be run at 100 mL an hour. Check urinalysis. Follow-up cultures. Continue with antibiotics. Continue to monitor renal function and urine output. Avoid hypotension. May bolus 1 more liter of 0.9 saline if needed. May require vasopressors. Thank you for the consultation. I will continue to follow the patient with you during his hospital stay.
[2016-11-12] MEDS ORDERED: SODIUM CHLORIDE 0.45% 1,000 ML IV SCH (11:15)
[2016-11-12] MEDS: IPRATROPIUM-ALBUTEROL 3 ML NEB INHALATION SCH ×3 (11:33→21:00)
--- NOTE | 2016-11-12 12:49 | P.HPIM ---
History of Present Illness H&P Date: 11/12/16 Chief Complaint: Shortness of breath 80-year-old male being seen in the intensive care unit after patient was evaluated in the emergency room for chief complaint of shortness of breath. Patient has a significant past medical history of lung cancer in which patient' s primary oncologist Dr. Hsieh had discussed in the office in September 2016 discussed with patient and spouse that he would be a appropriate candidate for comfort care with hospice. Dr. Hsieh did not recommend any further chemotherapy at that time due to patient's poor performance status. As discussed with the and the patient he suggested hospice care. Patient has a history of lung cancer which was diagnosed in 2014. Also a history of vocal cord paralysis. Patient had a PET scan done in July 2014 is consistent with metastatic disease. 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 Stable right-sided infiltrate. Patient and patient's spouse at the bedside discussed hospice care this morning the patient and indicate they are requesting hospice referral. Patient states he wants to be kept comfortable does not want any more aggressive treatment. The states that they discussed this at home and they are now ready for hospice care the states the patient has gotten progressively weaker prior to bringing patient into the hospital patient was on the floor he had fallen and she was not able to get him up. Patient has gotten progressively worse with more shortness of breath with any exertion. Review of Systems GENERAL APPEARANCE: 80-year-old patient is alert, oriented 3, in no acute distress. Sitting up in bed slightly short of breath with exertion speaks in a soft hoarse whisper VITAL SIGNS: HEENT: Head is normocephalic and atraumatic. Pupils are equal and reactive. The nares are patent. Oropharynx is clear without lesions. NECK: Supple without lymphadenopathy. Traches midline. HEART: S1, S2. Regular rate and rhythm. Denying chest pain LUNGS: Posterior diminished at the bases poor air entry upper airways coarse rhonchi ABDOMEN: Soft, nontender, nondistended with good bowel sounds. No peritoneal signs. No palpable organomegaly or masses. EXTREMITIES: Normal skin color and turgor. No cyanosis, rash, ulceration, clubbing or edema. Radial pedal pulses are 2/4 bilaterally. NEUROLOGICAL: No focal deficits. Strength and sensation are grossly intact. 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 Chronic hypoxic respiratory failure. History of Any Multi-Drug Resistant Organisms: None Reported Past Surgical History: Adenoidectomy, Hernia Repair, Orthopedic Surgery, Tonsillectomy Additional Past Surgical History / Comment(s): bilateral knee replacement, pin in right ankle, "rectal fissure sx long time ago", "bronchoscopy/bx", laina cataracts, micro laryngoscopy 2013. Past Anesthesia/Blood Transfusion Reactions: No Reported Reaction Additional Past Anesthesia/Blood Transfusion Reaction / Comment(s): clausterphobia. had 1 blood transfusion- no reaction. Past Psychological History: No Psychological Hx Reported Smoking Status: Former smoker Past Alcohol Use History: None Reported Past Drug Use History: None Reported - Past Family History Father Family Medical History: COPD Additional Family Medical History / Comment(s): emphysemas(smoker) Brother(s) Family Medical History: Cancer Additional Family Medical History / Comment(s): prostate cancer Sister(s) Family Medical History: COPD Mother Family Medical History: Dementia Additional Family Medical History / Comment(s): alzhiemers lived to be 102 Medications and Allergies Home Medications Medication Instructions Recorded Confirmed Type Sodium Bicarbonate Tab 650 mg PO BID 02/24/16 11/12/16 History Albuterol Inhaler [Ventolin Hfa 2 puff INHALATION RT-QID PRN 02/25/16 11/12/16 History Inhaler] Fluticasone/Salmeterol [Advair Hfa 1 puff INHALATION RT-BID 08/05/16 11/12/16 History 115-21 Mcg Inhaler] Furosemide [Lasix] 20 mg PO DAILY 08/05/16 11/12/16 History Insulin Aspart [NovoLOG] See Protocol SQ AC-TID 08/05/16 11/12/16 History Metoprolol Succinate (ER) [Toprol 50 mg PO DAILY 08/05/16 11/12/16 History XL] Allergies Allergy/AdvReac Type Severity Reaction Status Date / Time No Known Allergies Allergy Verified 11/12/16 08:19 Physical Exam Vitals: Vital Signs Temp Pulse Resp BP Pulse Ox 11/12/16 11:41 123 H 11/12/16 11:35 121 H 11/12/16 10:03 97.0 F L 99 26 H 89/55 92 L 11/12/16 09:38 124 H 18 11/12/16 09:25 130 H 26 H 92/53 95 11/12/16 09:21 103 H 18 11/12/16 08:28 115 H 28 H 105/54 96 11/12/16 08:20 124 H 18 11/12/16 08:07 124 H 16 11/12/16 08:01 98.5 F 103 H 28 H 96/53 97 11/12/16 07:57 124 H 11/12/16 07:51 88/53 11/12/16 07:47 124 H 16 11/12/16 07:40 92/50 11/12/16 07:30 97.3 F L 130 H 30 H 76/39 89 L Intake and Output 11/11/16 11/12/16 11/12/16 22:59 06:59 14:59 Intake Total 225.0 Output Total 60 Balance 165.0 Intake: IV 225.0 Piperacillin-Tazobactam 3 25.0 .375 gm In Dextrose/Water 1 50ml.bag @ 12.5 mls/hr IVPB ONCE STA Rx#: [id number] Sodium Chloride 0.9% 1, 200 000 ml @ 100 mls/hr IV . Q10H RAJIV Rx#:[id number] Output: Urine 60 Other: Weight 65.771 kg Patient Weight 11/13/16 06:59 Weight 65.771 kg Results CBC & Chem 7: 11/12/16 07:48 11/12/16 07:48 Labs: Abnormal Lab Results - Last 24 Hours (Table) 11/12/16 11/12/16 11/12/16 Range/Units 07:48 07:48 07:48 WBC 18.2 H (3.8-10.6) k/uL RBC 3.74 L (4.30-5.90) m/uL Hgb 12.2 L (13.0-17.5) gm/dL Hct 37.4 L (39.0-53.0) % Plt Count 113 L (150-450) k/uL Neutrophils # 17.0 H (1.3-7.7) k/uL Lymphocytes # 0.6 L (1.0-4.8) k/uL PT (9.0-12.0) sec Sodium 146 H (137-145) mmol/L Chloride 112 H (98-107) mmol/L Carbon Dioxide 18 L (22-30) mmol/L BUN 107 H* (9-20) mg/dL Creatinine 4.33 H (0.66-1.25) mg/dL Glucose 243 H (74-99) mg/dL POC Glucose (mg/dL) (75-99) mg/dL Plasma Lactic Acid Epifanio (0.7-2.0) mmol/L Calcium 7.9 L (8.4-10.2) mg/dL Total Creatine Kinase 52 L (55-170) U/L CK-MB (CK-2) 3.0 H* (0.0-2.4) ng/mL Troponin I 0.041 H* (0.000-0.034) ng/mL Total Protein 4.9 L (6.3-8.2) g/dL Albumin 2.6 L (3.5-5.0) g/dL 11/12/16 11/12/16 11/12/16 Range/Units 07:48 07:48 08:04 WBC (3.8-10.6) k/uL RBC (4.30-5.90) m/uL Hgb (13.0-17.5) gm/dL Hct (39.0-53.0) % Plt Count (150-450) k/uL Neutrophils # (1.3-7.7) k/uL Lymphocytes # (1.0-4.8) k/uL PT 12.5 H (9.0-12.0) sec Sodium (137-145) mmol/L Chloride (98-107) mmol/L Carbon Dioxide (22-30) mmol/L BUN (9-20) mg/dL Creatinine (0.66-1.25) mg/dL Glucose (74-99) mg/dL POC Glucose (mg/dL) 259 H (75-99) mg/dL Plasma Lactic Acid Epifanio 4.6 H* (0.7-2.0) mmol/L Calcium (8.4-10.2) mg/dL Total Creatine Kinase (55-170) U/L CK-MB (CK-2) (0.0-2.4) ng/mL Troponin I (0.000-0.034) ng/mL Total Protein (6.3-8.2) g/dL Albumin (3.5-5.0) g/dL 11/12/16 Range/Units 10:46 WBC (3.8-10.6) k/uL RBC (4.30-5.90) m/uL Hgb (13.0-17.5) gm/dL Hct (39.0-53.0) % Plt Count (150-450) k/uL Neutrophils # (1.3-7.7) k/uL Lymphocytes # (1.0-4.8) k/uL PT (9.0-12.0) sec Sodium (137-145) mmol/L Chloride (98-107) mmol/L Carbon Dioxide (22-30) mmol/L BUN (9-20) mg/dL Creatinine (0.66-1.25) mg/dL Glucose (74-99) mg/dL POC Glucose (mg/dL) 156 H (75-99) mg/dL Plasma Lactic Acid Epifanio (0.7-2.0) mmol/L Calcium (8.4-10.2) mg/dL Total Creatine Kinase (55-170) U/L CK-MB (CK-2) (0.0-2.4) ng/mL Troponin I (0.000-0.034) ng/mL Total Protein (6.3-8.2) g/dL Albumin (3.5-5.0) g/dL Assessment and Plan Plan: Impression present on admission leukocytosis tachycardic hypotension suspect sepsis due to pneumonia Chronic kidney disease stage IV secondary to diabetic kidney disease Diagnosed 2015 small cell lung cancer candidate for chemotherapy at this time Metabolic acidosis secondary to acute kidney injury and lactic acid Mild hypernatremia secondary to lack of oral fluid Acute kidney injury secondary ischemic ATN secondary to hypotension and sepsis. Creatinine 4.3 on admission. Mild protein calorie malnutrition suspect due to poor caloric intake Decrease functionality decreased endurance due to comorbidities Type 2 diabetes insulin requiring History a small cell lung cancer progression of the tumor diagnosed underwent chemotherapy last treatment July 2016 Chronic hypoxic respiratory failure 3 L [id number] supplemental home O2 suspect due to COPD and small cell lung cancer Chronic debilitated due to comorbidities Present on admission clinical dehydration due to poor oral intake CAT scan of the chest on August 2016 shows enlarged mass of the left pulmonary consistent with a tumor Present on admission shortness of breath suspect due to acute exacerbation COPD Plan Transfer patient out of the ICU to oncology unit Per patient and patient's spouse hospice care referral will be obtained Continue with the current plan of care Optimize comfort care measures DVT and GI prophylaxis continue Pain control IV Zosyn and Levaquin as ordered The above dictated assessment and findings were discussed with dr camejo . Impression and the plan of care have been dictated as directed. Esther Brenner nurse practitioner acting as a scribe for dr camejo
[2016-11-12 13:11] VITALS: BMI 22.0
[2016-11-12] MEDS: WATER FOR INJECTION IV SCH ×2 (13:18)
[2016-11-12] MEDS: STERILE IV SCH ×2 (13:18)
[2016-11-12] MEDS: SODIUM ACETATE IV SCH ×2 (13:18)
[2016-11-12] MEDS ORDERED: PIPERACILLIN-TAZOBACTAM 3.375 GM in DEXTROSE/WATER 1 50ML.BAG IVPB SCH (21:00)
[2016-11-13] MEDS: WATER FOR INJECTION IV SCH ×4 (00:12→08:43)
[2016-11-13] MEDS: SODIUM ACETATE IV SCH ×4 (00:12→08:43)
[2016-11-13] MEDS: STERILE IV SCH ×4 (00:12→08:43)
[2016-11-13 01:25] VITALS: TEMP 97.6
[2016-11-13] MEDS: IPRATROPIUM-ALBUTEROL 3 ML NEB INHALATION SCH (07:31)
[2016-11-13] MEDS ORDERED: ENOXAPARIN 30 MG/0.3 ML SYRINGE SQ SCH (09:00)
[2016-11-13] MEDS ORDERED: ENOXAPARIN 40 MG/0.4 ML SYRINGE SQ SCH (09:00)
--- NOTE | 2016-11-13 09:41 | P.DS ---
Providers Date of admission: 11/12/16 09:32 Expected date of discharge: 11/13/16 Attending physician: Fer Camejo Consults: 11/12/16 09:32 Consult Physician Routine Consulting Provider: Armaan Campa Consult Reason/Comments: known Do you want consulting provider notified?: Yes 11/12/16 09:37 Consult Physician Routine Consulting Provider: Odalis Velasquez Consult Reason/Comments: arf Do you want consulting provider notified?: Yes Consult Physician Urgent Consulting Provider: Luc Nelson Consult Reason/Comments: known Do you want consulting provider notified?: Yes Primary care physician: [facility] Course: 80-year-old male being seen in the intensive care unit after patient was evaluated in the emergency room for chief complaint of shortness of breath. Patient has a significant past medical history of lung cancer in which patient' s primary oncologist Dr. Hsieh had discussed in the office in September 2016 discussed with patient and spouse that he would be a appropriate candidate for comfort care with hospice. Dr. Hsieh did not recommend any further chemotherapy at that time due to patient's poor performance status. As discussed with the and the patient he suggested hospice care. Patient has a history of lung cancer which was diagnosed in 2014. Also a history of vocal cord paralysis. Patient had a PET scan done in July 2014 is consistent with metastatic disease. 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 Stable right-sided infiltrate. Patient and patient's spouse at the bedside discussed hospice care this morning the patient and indicate they are requesting hospice referral. Patient states he wants to be kept comfortable does not want any more aggressive treatment. The states that they discussed this at home and they are now ready for hospice care the states the patient has gotten progressively weaker prior to bringing patient into the hospital patient was on the floor he had fallen and she was not able to get him up. Patient has gotten progressively worse with more shortness of breath with any exertion. Patient's and the patient opted for home hospice wanted to take the patient home arrangements were made by the case mgr Impression present on admission leukocytosis tachycardic hypotension suspect sepsis due to pneumonia Chronic kidney disease stage IV secondary to diabetic kidney disease Diagnosed 2015 small cell lung cancer candidate for chemotherapy at this time Metabolic acidosis secondary to acute kidney injury and lactic acid Mild hypernatremia secondary to lack of oral fluid Acute kidney injury secondary ischemic ATN secondary to hypotension and sepsis. Creatinine 4.3 on admission. Mild protein calorie malnutrition suspect due to poor caloric intake Decrease functionality decreased endurance due to comorbidities Type 2 diabetes insulin requiring History a small cell lung cancer progression of the tumor diagnosed underwent chemotherapy last treatment July 2016 Chronic hypoxic respiratory failure 3 L [id number] supplemental home O2 suspect due to COPD and small cell lung cancer Chronic debilitated due to comorbidities Present on admission clinical dehydration due to poor oral intake CAT scan of the chest on August 2016 shows enlarged mass of the left pulmonary consistent with a tumor Present on admission shortness of breath suspect due to acute exacerbation COPD The above dictated assessment and findings were discussed with dr camejo . Impression and the plan of care have been dictated as directed. Esther Brenner nurse practitioner acting as a scribe for dr camejo Patient Condition at Discharge: Fair Plan - Discharge Summary New Discharge Prescriptions: Continue Sodium Bicarbonate Tab 650 mg PO BID Albuterol Inhaler [Ventolin Hfa Inhaler] 2 puff INHALATION RT-QID PRN PRN Reason: Shortness Of Breath Metoprolol Succinate (ER) [Toprol XL] 50 mg PO DAILY Insulin Aspart [NovoLOG] See Protocol SQ AC-TID Furosemide [Lasix] 20 mg PO DAILY Fluticasone/Salmeterol [Advair Hfa 115-21 Mcg Inhaler] 1 puff INHALATION RT- BID Dronabinol [Marinol] 2.5 mg PO AC-BID #60 cap Discharge Medication List Sodium Bicarbonate Tab 650 mg PO BID 02/24/16 [History] Albuterol Inhaler [Ventolin Hfa Inhaler] 2 puff INHALATION RT-QID PRN 02/25/16 [ History] Fluticasone/Salmeterol [Advair Hfa 115-21 Mcg Inhaler] 1 puff INHALATION RT-BID 08/05/16 [History] Furosemide [Lasix] 20 mg PO DAILY 08/05/16 [History] Insulin Aspart [NovoLOG] See Protocol SQ AC-TID 08/05/16 [History] Metoprolol Succinate (ER) [Toprol XL] 50 mg PO DAILY 08/05/16 [History] Dronabinol [Marinol] 2.5 mg PO AC-BID #60 cap 11/01/16 [Rx] Follow up Appointment(s)/Referral(s): Fer Camejo MD [Primary Care Provider] - 1-2 days [facility] Visiting Nurse, [NON-STAFF] - 1 Week Discharge Disposition: HOME WITH HOSPICE
[2016-11-13 09:55] VITALS: BP 164/70; PULSE 77; RESP 41
[2016-11-13] MEDS ORDERED: LEVOFLOXACIN 750MG-D5W PMX 750 MG in DEXTROSE/WATER 1 150ML.BAG IVPB SCH (10:00)
[2016-11-14] MEDS ORDERED: LEVOFLOXACIN 500MG-D5W PMX 500 MG in DEXTROSE/WATER 1 100ML.BAG IVPB SCH (09:00)
== END 2016-11-13 11:38 | disposition hospice, home (50) | DRG 871 ==
LOC: EC 07:28 → 6ICU 09:32 → 5ONC 13:52
PROVIDERS: ADMIT Family Medicine; ATTEND Family Medicine
DX: A41.9 Sepsis, unspecified organism (principal); J18.9 Pneumonia, unspecified organism; N17.0 Acute kidney failure with tubular necrosis; E87.0 Hyperosmolality and hypernatremia; E87.2 Acidosis; N18.4 Chronic kidney disease, stage 4 (severe); J96.11 Chronic respiratory failure with hypoxia; C34.90 Malignant neoplasm of unspecified part of unspecified bronchus or lung; J44.0 Chronic obstructive pulmonary disease with (acute) lower respiratory infection; Z51.5 Encounter for palliative care; E44.1 Mild protein-calorie malnutrition; J44.1 Chronic obstructive pulmonary disease with (acute) exacerbation; J38.01 Paralysis of vocal cords and larynx, unilateral; E11.22 Type 2 diabetes mellitus with diabetic chronic kidney disease; E78.5 Hyperlipidemia, unspecified; I12.9 Hypertensive chronic kidney disease with stage 1 through stage 4 chronic kidney disease, or unspecified chronic kidney disease; I25.10 Atherosclerotic heart disease of native coronary artery without angina pectoris; R65.20 Severe sepsis without septic shock; E86.0 Dehydration; M19.90 Unspecified osteoarthritis, unspecified site; Z68.22 Body mass index [BMI] 22.0-22.9, adult; Z87.891 Personal history of nicotine dependence; Z96.653 Presence of artificial knee joint, bilateral; Z99.81 Dependence on supplemental oxygen; Z79.4 Long term (current) use of insulin; Z79.899 Other long term (current) drug therapy; Z80.42 Family history of malignant neoplasm of prostate
CPT/HCPCS: 36415; 71020; 80053; 82550; 82553; 83605; 83735; 83880; 84484; 85025; 85610; 85730; 87040; 93005; 94640; 94644